=== PATIENT | female | born 1975 | race Caucasian/White ===

== ENCOUNTER 2019-04-24 19:28 | Inpatient (IN) | payer OTHER ==
[~2019-04-24] VITALS: Ht 154.9 cm; Wt 95.5 kg
[~2019-04-24 19:28] MED LIST: DEXA1TAB PO; IRBE1TAB33 PO; LEVE-5 PO; OMEP20CA16 PO; TOPI50TA13 PO
[2019-04-24] MEDS ORDERED: LORAZEPAM 2 MG INJ IV ONE (20:00)
[2019-04-24] MEDS ORDERED: ONDANSETRON 4 MG INJ IV STA ×2 (20:51→22:57)
[2019-04-24] MEDS ORDERED: ACETAMINOPHEN 325 MG TAB PO ONE (21:00)
[2019-04-24] MEDS ORDERED: POTASSIUM CHLORIDE (SR) 20 MEQ TAB PO STA (21:10)
[2019-04-24] MEDS ORDERED: ONDANSETRON 4 MG INJ IV PRN ×2 (21:30)
[2019-04-24] MEDS ORDERED: ACETAMINOPHEN 325 MG TAB PO PRN (21:30)
[2019-04-24] MEDS ORDERED: BISACODYL (EC) 5 MG TAB PO PRN (21:30)
[2019-04-24] MEDS ORDERED: NACL 0.9% 3 ML SYG IV SCH (21:30)
[2019-04-24] MEDS ORDERED: LORAZEPAM 2 MG INJ IV PRN (21:30)
--- NOTE | 2019-04-24 21:33 | ERD ---
ER Documentation Chief Complaint Chief Complaint ALTERED MENTAL STATUS; PRESENTS CONFUSED BUT RESPONDING TO QUESTIONS HPI Patient is a 43-year-old female with a history of hypertension who presents with altered mental status. Please note the history and physical exam is limited secondary to the patient's altered mental status upon arrival. The patient was brought in by ambulance. 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 She was brought in from her home. Family reports seeing her become altered and then starts shaking all over and was confused afterwards. Upon review of old medical records this the patient's first visit to the emergency department. She has never had something like this happen her before. ROS All systems reviewed and are negative except as per history of present illness. Medications Home Meds Reported Medications Irbesartan-Hydrochlorothiazide (Irbesartan-Hydrochlorothiazide) 150-12.5 Mg Tab, TAB PO DAILY, TAB TAKE 1 OR 2 TAB DAILY 04/24/19 Allergies Allergies: Coded Allergies: No Known Allergy (Unverified , 04/24/19) PMhx/Soc Medical and Surgical Hx: pt denies Surgical Hx Hx Cardiac Disorders: Yes (Hypertension) Hx Alcohol Use: No Hx Substance Use: No Hx Tobacco Use: No Smoking Status: Unknown if ever smoked FmHx Family History: No diabetes Physical Exam Vitals Vital Signs Date Temp Pulse Resp B/P (MAP) Pulse Ox O2 O2 Flow FiO2 Time Delivery Rate 04/24/19 98.0 82 19 182/90 97 Room Air 20:46 (120) 04/24/19 98.3 100 20 188/105 100 19:35 (132) Physical Exam Const: No acute distress Head: Atraumatic Eyes: Normal Conjunctiva ENT: Normal External Ears, Nose and Mouth. Neck: Full range of motion. No meningismus. Resp: Clear to auscultation bilaterally Cardio: Regular rate and rhythm, no murmurs Abd: Soft, non tender, non distended. Normal bowel sounds Skin: Diaphoresis Back: No midline or flank tenderness Ext: No cyanosis, or edema Neur: Awake and alert, cranial nerves II through XII intact, moving all 4 extremities Result Diagram: 04/24/19193104/24/191931 Results 24 hrs Laboratory Tests Test 04/24/19 19:32 04/24/19 20:30 04/24/19 21:01 White Blood Count 14.0 10^3/ul Red Blood Count 5.32 10^6/ul Hemoglobin 14.9 g/dl Hematocrit 45.7 % Mean Corpuscular Volume 85.9 fl Mean Corpuscular Hemoglobin 28.0 pg Mean Corpuscular Hemoglobin Concent 32.6 g/dl Red Cell Distribution Width 14.3 % Platelet Count 402 10^3/UL Mean Platelet Volume 9.8 fl Immature Granulocytes % 0.400 % Neutrophils % 46.9 % Lymphocytes % 42.7 % Monocytes % 7.6 % Eosinophils % 1.6 % Basophils % 0.8 % Nucleated Red Blood Cells % 0.0 /100WBC Immature Granulocytes # 0.050 10^3/ul Neutrophils # 6.6 10^3/ul Lymphocytes # 6.0 10^3/ul Monocytes # 1.1 10^3/ul Eosinophils # 0.2 10^3/ul Basophils # 0.1 10^3/ul Nucleated Red Blood Cells # 0.0 10^3/ul Sodium Level 140 mmol/L Potassium Level 3.0 mmol/L Chloride Level 104 mmol/L Carbon Dioxide Level 17 mmol/L Anion Gap 19 Blood Urea Nitrogen 11 mg/dl Creatinine 0.85 mg/dl Est Glomerular Filtrat Rate mL/min > 60 mL/min Glucose Level 169 mg/dl Bedside Glucose 164 mg/dL Calcium Level 9.4 mg/dl Urine Opiates Screen Negative Urine Barbiturates Negative Urine Amphetamines Screen Negative Urine Benzodiazepines Screen Negative Urine Cocaine Screen Negative Urine Cannabinoids Negative POC Beta HCG, Qualitative NEGATIVE Current Medications Medications Dose Sig/Anna Start Time Status Last (Trade) Ordered Route PRN Stop Time Admin Dose Reason Admin Lorazepam 0.5 mg ONCE ONCE 04/24/19 DC 04/24/19 (Ativan) IV 20:00 04/24/19 19:48 20:01 650 mg ONCE ONCE 04/24/19 DC 04/24/19 Acetaminophen PO 21:00 04/24/19 20:56 (Tylenol 21:01 Tab) Ondansetron 4 mg ONCE STAT 04/24/19 DC 04/24/19 HCl (Zofran IV 20:51 04/24/19 20:56 Inj) 20:52 Potassium 40 meq ONCE STAT 04/24/19 DC Chloride PO 21:10 04/24/19 (Klor-Con 20) 21:11 Ondansetron 4 mg ER BRIDGE 04/24/19 HCl (Zofran PRN IV 21:30 04/25/19 Inj) NAUSEA/VOMITI 21:29 NG 650 mg ER BRIDGE 04/24/19 Acetaminophen PRN PO 21:30 04/25/19 (Tylenol .MILD PAIN 21:29 Tab) 1-3 OR TEMP Lorazepam 1 mg [id number] 04/24/19 UNV (Ativan) PRN IV 21:30 SEIZURES 100 ml @ ONCE ONCE 04/24/19 UNV Levetiracetam 400 mls/hr IVPB 21:30 04/24/19 21:44 IV Flush 3 ml PER 04/24/19 UNV (NS 3 ml) PROTOCOL IV 21:30 Ondansetron 4 mg Q6H PRN 04/24/19 UNV HCl (Zofran IV 21:30 Inj) NAUSEA/VOMITI NG 650 mg Q6H PRN 04/24/19 UNV Acetaminophen PO .PAIN 1-3 21:30 (Tylenol OR TEMP Tab) Docusate 100 mg Q12H PRN 04/24/19 UNV Sodium PO 21:30 (Colace) .CONSTIPATION Bisacodyl 5 mg DAILY PRN 04/24/19 UNV (Dulcolax) PO 21:30 .CONSTIPATION Procedures/MDM CT brain read by radiology. Patient is a 43-year-old female presents with acute new onset seizure. Patient is now back to baseline. CT brain was abnormal and showed an area of vasogenic edema. The patient will need admission for MRI and further seizure work-up possibly with EEG. The patient will be admitted to the care of Dr. Estevez to a telemetry inpatient bed. The patient was given Ativan to prevent further seizure. DMV form was filled out and sent to the DMV. Critical Care: Time: 35 minutes excluding all billable procedures. Treatments/Evaluations: Close monitoring and treatment of unstable vital signs, cardiorespiratory, and neurologic status, while maintaining tight balance of fluid, respiratory, and cardiac interventions. Departure Diagnosis: Primary Impression: New onset seizure Additional Impression: Altered level of consciousness Condition: Serious HELENA MARQUES MD Apr 24, 2019 21:33
[2019-04-24] MEDS ORDERED: LEVETIRACETAM 1000 MG (PMX) 100 ML IVPB ONE (21:45)
[2019-04-24] MEDS ORDERED: SOD CHLORIDE 0.9% 1,000 ML IV STA (22:57)
[2019-04-24] MEDS ORDERED: morphine 4 MG/ML VIAL IV STA (22:57)
[2019-04-25] MEDS ORDERED: NS + KCL 20 MEQ 1,000 ML IV SCH
--- NOTE | 2019-04-25 02:08 | HP ---
Date/Time of Note Date/Time of Note DATE: 04/25/19 TIME: 02:08 Assessment/Plan VTE Prophylaxis SCD applied (from Nsg): Yes Pharmacological prophylaxis: NA/contraindicated Pharm contraindication: low risk/ambulating Lines/Catheters IV Catheter Type (from Nrsg): Saline Lock Assessment/Plan Hospital Course This is a 43-year-old female being admitted to the telemetry floor for : #1 new onset seizure: Suspect secondary to underlying parenchymal lesion. Will give a loading dose of Keppra 1000 mg IV x1. PRN Ativan. Seizure precautions. MRI of the brain with contrast is pending. Will order EEG. Will consult neurology, and depending on MRI findings will consider neurosurgery consultation . PT eval. DMV has been notified by the emergency department. Will order a chest x-ray for preop purposes in the setting of possible neurosurgical intervention. #[address]: Asymmetric low attenuation in the right parietal lobe subcortical white matter. Mild asymmetric prominence of the overlying gyri. The finding may represent parenchymal lesion with underlying vasogenic edema or malformation of cortical development, and can represent seizure focus. Asymmetric cleft with CSF attenuation in the right temporal lobe, potentially representing close lip schizencephaly. - MRI brain with contrast has been ordered #3 Leukocytosis: likely reactive. No signs of infection, afebrile. Will monitor #4 hypertension: We will resume patient's home blood pressure medication. Low- salt diet #5 morbidly obese: We will check hemoglobin A1c, lipid panel, TSH #6 DVT GI prophylaxis: SCDs, no GI prophylaxis indicated Further treatment strategy will be implemented as per the clinical course Result Diagram: 04/24/19193104/24/191931 Results 24hrs Laboratory Tests Test 04/24/19 19:32 04/24/19 20:30 04/24/19 21:01 White Blood Count 14.0 H Red Blood Count 5.32 Hemoglobin 14.9 Hematocrit 45.7 Mean Corpuscular Volume 85.9 Mean Corpuscular Hemoglobin 28.0 L Mean Corpuscular 32.6 Hemoglobin Concent Red Cell Distribution Width 14.3 Platelet Count 402 Mean Platelet Volume 9.8 Immature Granulocytes % 0.400 Neutrophils % 46.9 Lymphocytes % 42.7 Monocytes % 7.6 Eosinophils % 1.6 Basophils % 0.8 Nucleated Red Blood Cells % 0.0 Immature Granulocytes # 0.050 H Neutrophils # 6.6 Lymphocytes # 6.0 H Monocytes # 1.1 H Eosinophils # 0.2 Basophils # 0.1 Nucleated Red Blood Cells # 0.0 Sodium Level 140 Potassium Level 3.0 L Chloride Level 104 Carbon Dioxide Level 17 L Anion Gap 19 H Blood Urea Nitrogen 11 Creatinine 0.85 Est Glomerular Filtrat > 60 Rate mL/min Glucose Level 169 Bedside Glucose 164 Calcium Level 9.4 Urine Color YELLOW Urine Clarity SLIGHTLY CLOUDY A Urine pH 5.0 Urine Specific Powers 1.020 Urine Ketones 1+ H Urine Nitrite NEGATIVE Urine Bilirubin NEGATIVE Urine Urobilinogen NEGATIVE Urine Leukocyte Esterase 1+ H Urine Microscopic RBC 11 H Urine Microscopic WBC 6 H Urine Squamous Epithelial Cells FEW Urine Hemoglobin NEGATIVE Urine Glucose NEGATIVE Urine Total Protein 1+ H Urine Opiates Screen Negative Urine Barbiturates Negative Urine Amphetamines Screen Negative Urine Benzodiazepines Screen Negative Urine Cocaine Screen Negative Urine Cannabinoids Negative POC Beta HCG, Qualitative NEGATIVE HPI/ROS Admit Date/Time Admit Date/Time Hx of Present Illness Chief complaint: Witnessed seizure, altered mental status Patient is a 43-year-old female with a history of hypertension who presents with altered mental status status post new onset witnessed seizure. As per the family at the bedside the patient was sitting and having dinner with the family when all of a sudden she appeared to be in a stare and then started having shaking activity and foaming at the mouth. Family members grabbed the patient and gently put her to the ground and on her side. The seizure did continue for a few minutes and then it stopped on its own without any intervention. The patient did appear confused after the seizure stopped. When she arrived in the emergency department she still was somewhat confused. Her blood sugar was checked in the emergency department and it was 115. Please note the history and physical exam is limited secondary to the patient's altered mental status upon arrival. The patient was brought in by ambulance. The patient's sugar was 115 but she was not cooperative with paramedics. She was brought in from her home. She does have a family history of seizures in her sister. Allergies: NKDA medications: See CASTILLO PAUL Const: As per HPI Eyes : No pain discharge or redness or change in visual acuity ENT: No pain, sore throat, congestion, congestion, dysphagia or discharge Respiratory: No shortness of breath, cough, sputum, wheezing, or pleuritic pain Cardiovascular: No chest pain, palpitation, PND, or edema GI : no change in appetite, abdominal pain, nausea, vomiting, diarrhea, constipation, or change in the color his stool Genitourinary: No dysuria, hematuria, flank pain , discharge or CVA tenderness Musculoskeletal: No joint pain, back pain, neck pain, restricted range of motion in neck or joints Skin: No rash, bruising or hives Neuro: As per HPI Endocrine: No polyuria, polydipsia, temperature intolerance Psych: No hallucination, depression, anxiety or suicidal ideation PMH/Family/Social Past Medical History Hypertension, migraines Medications Current Medications Ondansetron HCl (Zofran Inj) 4 mg ER BRIDGE PRN IV NAUSEA/VOMITING; Start 04/24/19 at 21:30; Stop 04/25/19 at 21:29 Acetaminophen (Tylenol Tab) 650 mg ER BRIDGE PRN PO .MILD PAIN 1-3 OR TEMP; Start 04/24/19 at 21:30; Stop 04/25/19 at 21:29 Lorazepam (Ativan) 1 mg Q5M PRN IV SEIZURES; Start 04/24/19 at 21:30 IV Flush (NS 3 ml) 3 ml PER PROTOCOL IV ; Start 04/24/19 at 21:30 Ondansetron HCl (Zofran Inj) 4 mg Q6H PRN IV NAUSEA/VOMITING; Start 04/24/19 at 21:30 Acetaminophen (Tylenol Tab) 650 mg Q6H PRN PO .PAIN 1-3 OR TEMP; Start 04/24/19 at 21:30 Docusate Sodium (Colace) 100 mg Q12H PRN PO .CONSTIPATION; Start 04/24/19 at 21:30 Bisacodyl (Dulcolax) 5 mg DAILY PRN PO .CONSTIPATION; Start 04/24/19 at 21:30 Potassium Chloride/Sodium Chloride 1,000 ml @ 75 mls/hr [id number] IV Last administered on 04/25/19at 00:45; Admin Dose 75 MLS/HR; Start 04/25/19 at 00:00; Stop 04/25/19 at 11:59 Coded Allergies: No Known Allergy (Unverified , 04/24/19) Past Surgical History x1, cholecystectomy Family History Significant Family History: no pertinent family hx Social History Alcohol Use: occasionally Smoking Status: Never smoker Drug Use: none Exam/Review of Systems Vital Signs Vitals Vital Signs Date Temp Pulse Resp B/P (MAP) Pulse Ox O2 O2 Flow FiO2 Time Delivery Rate 04/25/19 75 20 144/101 94 Room Air 01:42 (115) 04/24/19 98.0 22:53 Intake and Output 04/24/19 04/24/19 04/25/19 1515:00 23:00 07:00 IntakeIntake Total 100 ml 1000 ml BalanceBalance 100 ml 1000 ml Exam Exam General: patient is a pleasant female currently lying in bed in no acute distress HEENT: Atraumatic, normocephalic. The pupils are equal, round and reactive. Extraocular motor are intact Neck: Supple with full range of motion. No rigidity or meningismus Chest: Nontender Lungs: Clear to auscultation bilaterally no crackles rales or wheezing Heart: Normal S1-S2, Regular rhythm and rate. No murmur, S3, or S4 Abdomen: Morbidly obese, soft , nontender, nondistended , bowel sounds are present. No guarding no rebound tenderness , No masses or organomegaly. No costovertebral temporal angle mass Extremities: Normal to inspection, no edema no cyanosis Neurologic: Alert and oriented x4, normal mental status, speech normal, cranial nerves II through XII are intact, motor and sensory are intact, no focal neurological deficits noted on exam. Gait not assessed Additional Comments PROCEDURE: CT Brain without contrast CLINICAL INDICATION: Patient experiencing Seizure (Perform CT without Contrast) TECHNIQUE: A CT of the brain was performed on multidetector high-resolution CT scanner utilizing axial sections from the skull base through the vertex without contrast. The scan was reviewed in soft tissue brain and high frequency resolution bone algorithm windows. Images were reviewed on a high-resolution PACS workstation. DICOM images are available. CTDI (mGy): 37.48 mGy and DLP(mGy-cm): 634.23 mGy.cm One or more of the following dose reduction techniques were used: - Automated exposure control. - Adjustment of the mA and/or kV according to patient size. Use of iterative reconstruction technique. COMPARISON: None available FINDINGS: The ventricles and sulci are symmetric and normal in size and morphology. There is no evidence of intracranial hemorrhage, mass effect, or midline shift. No abnormal intra-axial or extra-axial fluid collections are seen. There is asymmetric low attenuation in the subcortical white matter of the right parietal lobe. The overlying cortical gyri appear slightly more prominent compared to the contralateral side. 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 The osseous structures and visualized paranasal sinuses are unremarkable. The surrounding soft tissue scalp and bony calvarium are intact and normal. IMPRESSION: 1. Asymmetric low attenuation in the right parietal lobe subcortical white matter. Mild asymmetric prominence of the overlying gyri. The finding may represent parenchymal lesion with underlying vasogenic edema or malformation of cortical development, and can represent seizure focus. Dedicated brain MR with contrast is recommended for further evaluation. 2. Asymmetric cleft with CSF attenuation in the right temporal lobe, potentially representing close lip schizencephaly. 3. No CT evidence of acute findings such as hemorrhage, herniation or midline s hift. These findings were discussed with Helena Ledezma at 04/24/2019 8:59:15 PM. RPTAT: EE Physician Barrett Date Time Electronically viewed and signed by Physician Barrett on 04/24/2019 20:59 BP/ CC: HELENA MARQUES MD [id number] PROCEDURE: Chest. GLORIA BLAND Apr 25, 2019 02:08
[2019-04-25 02:55] VITALS: BP 126/81; PULSE 61; RESP 18
[2019-04-25 03:11] VITALS: Ht 154.9 cm; Wt 95.5 kg
[2019-04-25 04:00] VITALS: BP 121/78; PULSE 60; RESP 19
[2019-04-25 07:37] VITALS: BP 123/67; PULSE 68; RESP 18
[2019-04-25] MEDS: ACETAMINOPHEN 325 MG TAB PO PRN (08:53)
[2019-04-25] MEDS: LEVETIRACETAM 500 MG TAB PO SCH ×2 (08:53→22:13)
[2019-04-25 12:31] VITALS: BP 155/75; PULSE 69; RESP 18
--- NOTE | 2019-04-25 14:37 | PN ---
Date/Time of Note Date/Time of Note DATE: 04/25/19 TIME: 14:30 Assessment/Plan VTE Prophylaxis Risk score (from Nsg)>0 risk: 3 SCD applied (from Nsg): Yes Pharmacological prophylaxis: NA/contraindicated Pharm contraindication: low risk/ambulating Lines/Catheters IV Catheter Type (from Nrsg): Peripheral IV Urinary Cath still in place: No Assessment/Plan Assessment/Plan 43 yo woman with new onset seizure found to have #1 new onset seizure: - Likely due to 2.5 cm R temporal mass (likely meningioma) seen on CT and MRI - Continue daily Keppra for now. - Seizure precautions - Neurology consulted - DMV was notified by the ED. 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 #3 hypertension: We will resume patient's home blood pressure medication. Low- salt diet #4 morbidly obese: We will check hemoglobin A1c, lipid panel, TSH #5 DVT GI prophylaxis: SCDs, no GI prophylaxis indicated Result Diagram: 04/25/1946 04/25/19 0548 Subjective 24 Hr Interval Summary Free Text/Dictation No acute overnight events. Patient is doing well. She has mild left hip and shoulder soreness, otherwise no complaints. Exam/Review of Systems Exam Vitals Vital Signs Date Temp Pulse Resp B/P (MAP) Pulse Ox O2 O2 Flow FiO2 Time Delivery Rate 04/25/19 97.8 69 18 155/75 95 Room Air 12:31 (101) 04/25/19 2.0 08:00 Intake and Output 04/24/19 04/24/19 04/25/19 1515:00 23:00 07:00 IntakeIntake Total 100 ml 1620 ml BalanceBalance 100 ml 1620 ml Exam General: Patient is a pleasant woman sitting up in chair. HEENT: Atraumatic, normocephalic. The pupils are equal, round and reactive. Extraocular motor are intact Neck: Supple with full range of motion. No rigidity or meningismus Chest: Nontender Lungs: Clear to auscultation bilaterally no crackles rales or wheezing Heart: Normal S1-S2, Regular rhythm and rate. No murmur, S3, or S4 Abdomen: Morbidly obese, soft , nontender, nondistended , bowel sounds are present. Extremities: Normal to inspection, no edema no cyanosis Results Results 24hrs Laboratory Tests Test 04/24/19 19:32 04/24/19 20:30 04/24/19 21:01 04/25/19 05:48 White Blood Count 14.0 H 11.7 H Red Blood Count 5.32 4.82 Hemoglobin 14.9 13.4 Hematocrit 45.7 41.4 Mean Corpuscular 85.9 85.9 Volume Mean Corpuscular 28.0 L 27.8 L Hemoglobin Mean Corpuscular 32.6 32.4 Hemoglobin Concent Red Cell 14.3 14.4 Distribution Width Platelet Count 402 350 Mean Platelet 9.8 9.8 Volume Immature 0.400 0.300 Granulocytes % Neutrophils % 46.9 68.7 Lymphocytes % 42.7 21.8 Monocytes % 7.6 8.0 Eosinophils % 1.6 0.7 Basophils % 0.8 0.5 Nucleated Red 0.0 0.0 Blood Cells % Immature 0.050 H 0.040 H Granulocytes # Neutrophils # 6.6 8.1 H Lymphocytes # 6.0 H 2.6 Monocytes # 1.1 H 0.9 Eosinophils # 0.2 0.1 Basophils # 0.1 0.1 Nucleated Red 0.0 0.0 Blood Cells # Sodium Level 140 143 Potassium Level 3.0 L 3.6 Chloride Level 104 112 H Carbon Dioxide 17 L 23 Level Anion Gap 19 H 8 # Blood Urea 11 9 Nitrogen Creatinine 0.85 0.63 Est Glomerular > 60 > 60 Filtrat Rate mL/min Glucose Level 169 101 # Bedside Glucose 164 Calcium Level 9.4 8.3 L Urine Color YELLOW Urine Clarity SLIGHTLY CLOUDY A Urine pH 5.0 Urine Specific 1.020 [place] Urine Ketones 1+ H Urine Nitrite NEGATIVE Urine Bilirubin NEGATIVE Urine Urobilinogen NEGATIVE Urine Leukocyte 1+ H Esterase Urine Microscopic 11 H RBC Urine Microscopic 6 H WBC Urine Squamous FEW Epithelial Cells Urine Hemoglobin NEGATIVE Urine Glucose NEGATIVE Urine Total 1+ H Protein Urine Opiates Negative Screen Urine Barbiturates Negative Urine Amphetamines Negative Screen Urine Negative Benzodiazepines Screen Urine Cocaine Negative Screen Urine Cannabinoids Negative POC Beta HCG, NEGATIVE Qualitative Hemoglobin A1c 5.7 Magnesium Level 2.0 Total Bilirubin 0.6 Direct Bilirubin 0.00 Indirect Bilirubin 0.6 Aspartate Amino 31 Transf (AST/SGOT) Alanine 41 Aminotransferase ( ALT/SGPT) Alkaline 65 Phosphatase Total Protein 7.4 Albumin 3.7 Globulin 3.70 H Albumin/Globulin 1.00 Ratio Thyroid 1.170 Stimulating Hormone (TSH) Medications Medication Current Medications Lorazepam (Ativan) 1 mg Q5M PRN IV SEIZURES; Start 04/24/19 at 21:30 IV Flush (NS 3 ml) 3 ml PER PROTOCOL IV ; Start 04/24/19 at 21:30 Ondansetron HCl (Zofran Inj) 4 mg Q6H PRN IV NAUSEA/VOMITING; Start 04/24/19 at 21:30 Acetaminophen (Tylenol Tab) 650 mg Q6H PRN PO .PAIN 1-3 OR TEMP Last administered on 04/25/19at 08:53; Admin Dose 650 MG; Start 04/24/19 at 21:30 Docusate Sodium (Colace) 100 mg Q12H PRN PO .CONSTIPATION; Start 04/24/19 at 21:30 Bisacodyl (Dulcolax) 5 mg DAILY PRN PO .CONSTIPATION; Start 04/24/19 at 21:30 Levetiracetam (Keppra) 500 mg BID PO Last administered on 04/25/19at 08:53; Admin Dose 500 MG; Start 04/25/19 at 09:00 MARGARET HAM MD Apr 25, 2019 14:37
--- NOTE | 2019-04-25 14:40 | CONSI ---
Assessment/Plan Assessment/Plan Assessment/Plan (Recall) 43 F c/ migraines and other comorbidities, who presents following a witnessed generalized convulsion. She was found on brain imaging to have an extraaxial lesion w/ adjacent parenchymal edema..which is certainly the underlying cause.. P: Keppra for now; Transition to Topamax monotherapy for seizure ppx Ativan iv prn prolonged seizure or cluster Await neurosurgery evaluation Other management and supportive care per primary She can not drive in the short-term Will follow clinically Consultation Date/Type/Reason Admit Date/Time Type of Consult Neurology Reason for Consultation seizure Requesting Provider: GLORIA BLAND Date/Time of Note DATE: 04/25/19 TIME: 14:34 Hx of Present Illness Patient is a 43-year-old female with a history of, migraine and hypertension who presents with altered mental status status post new onset witnessed seizure. As per the family at the bedside the patient was sitting and having dinner with the family when all of a sudden she appeared to be in a stare and then started having shaking activity and foaming at the mouth. Family members grabbed the patient and gently put her to the ground and on her side. The seizure did continue for a few minutes and then it stopped on its own without any intervention. The patient did appear confused after the seizure stopped. When she arrived in the emergency department she still was somewhat confused. Her blood sugar was checked in the emergency department and it was 115. Please note the history and physical exam is limited secondary to the patient's altered ment al status upon arrival. The patient was brought in by ambulance. The patient's sugar was 115 but she was not cooperative with paramedics. She was brought in from her home. She does have a family history of seizures in her sister. She notes several episodes of outer body experience w/ hearing difficulties, etc. in recent weeks. per HPI Objective Exam Vitals Vital Signs Date Temp Pulse Resp B/P (MAP) Pulse Ox O2 O2 Flow FiO2 Time Delivery Rate 04/25/19 97.8 69 18 155/75 95 Room Air 12:31 (101) 04/25/19 2.0 08:00 Intake and Output 04/24/19 04/24/19 04/25/19 1515:00 23:00 07:00 IntakeIntake Total 100 ml 1620 ml BalanceBalance 100 ml 1620 ml Exam PE: Gen Appearance: No Apparent Distress HEENT: Normocephalic Cardiovascular: Regular rate Lungs: Clear bilaterally Abdomen: Soft Extremities: Dry NE: The patient was alert and oriented. Language was normal. Fund of knowledge was normal. Pupils were equal and reactive to light. There was no afferent pupillary defect. Visual salazar were normal. Funduscopic examination was limited. Extra-ocular movements were full. Ptosis was absent. There was no nystagmus. Facial sensation was normal. Face was symmetric with normal strength. Hearing was intact. Palate movements were normal. Neck strength was normal. There was normal tongue bulk and speed of movement. Tone was normal. Muscle bulk was normal. I did not see fasciculations. Arms and legs were strong. Vibration sensation was normal. Temperature and pinprick sensation was normal. Rapid alternating movements were normal. There was no dysmetria. There was no intention tremor. Gait was deferred due to bedrest. Arm and leg reflexes were symmetric. Seo's sign was absent. Plantar responses were flexor. Results Result Diagram: 04/25/19 0548 04/25/19 0548 Results 24hrs Laboratory Tests Test 04/24/19 19:32 04/24/19 20:30 04/24/19 21:01 04/25/19 05:48 White Blood Count 14.0 H 11.7 H Red Blood Count 5.32 4.82 Hemoglobin 14.9 13.4 Hematocrit 45.7 41.4 Mean Corpuscular 85.9 85.9 Volume Mean Corpuscular 28.0 L 27.8 L Hemoglobin Mean Corpuscular 32.6 32.4 Hemoglobin Concent Red Cell 14.3 14.4 Distribution Width Platelet Count 402 350 Mean Platelet 9.8 9.8 Volume Immature 0.400 0.300 Granulocytes % Neutrophils % 46.9 68.7 Lymphocytes % 42.7 21.8 Monocytes % 7.6 8.0 Eosinophils % 1.6 0.7 Basophils % 0.8 0.5 Nucleated Red 0.0 0.0 Blood Cells % Immature 0.050 H 0.040 H Granulocytes # Neutrophils # 6.6 8.1 H Lymphocytes # 6.0 H 2.6 Monocytes # 1.1 H 0.9 Eosinophils # 0.2 0.1 Basophils # 0.1 0.1 Nucleated Red 0.0 0.0 Blood Cells # Sodium Level 140 143 Potassium Level 3.0 L 3.6 Chloride Level 104 112 H Carbon Dioxide 17 L 23 Level Anion Gap 19 H 8 # Blood Urea 11 9 Nitrogen Creatinine 0.85 0.63 Est Glomerular > 60 > 60 Filtrat Rate mL/min Glucose Level 169 101 # Bedside Glucose 164 Calcium Level 9.4 8.3 L Urine Color YELLOW Urine Clarity SLIGHTLY CLOUDY A Urine pH 5.0 Urine Specific 1.020 [place] Urine Ketones 1+ H Urine Nitrite NEGATIVE Urine Bilirubin NEGATIVE Urine Urobilinogen NEGATIVE Urine Leukocyte 1+ H Esterase Urine Microscopic 11 H RBC Urine Microscopic 6 H WBC Urine Squamous FEW Epithelial Cells Urine Hemoglobin NEGATIVE Urine Glucose NEGATIVE Urine Total 1+ H Protein Urine Opiates Negative Screen Urine Barbiturates Negative Urine Amphetamines Negative Screen Urine Negative Benzodiazepines Screen Urine Cocaine Negative Screen Urine Cannabinoids Negative POC Beta HCG, NEGATIVE Qualitative Hemoglobin A1c 5.7 Magnesium Level 2.0 Total Bilirubin 0.6 Direct Bilirubin 0.00 Indirect Bilirubin 0.6 Aspartate Amino 31 Transf (AST/SGOT) Alanine 41 Aminotransferase ( ALT/SGPT) Alkaline 65 Phosphatase Total Protein 7.4 Albumin 3.7 Globulin 3.70 H Albumin/Globulin 1.00 Ratio Thyroid 1.170 Stimulating Hormone (TSH) Past Medical History reviewed Home Meds Reported Medications Irbesartan-Hydrochlorothiazide (Irbesartan-Hydrochlorothiazide) 150-12.5 Mg Tab, TAB PO DAILY, TAB TAKE 1 OR 2 TAB DAILY 04/24/19 Medications Current Medications Lorazepam (Ativan) 1 mg Q5M PRN IV SEIZURES; Start 04/24/19 at 21:30 IV Flush (NS 3 ml) 3 ml PER PROTOCOL IV ; Start 04/24/19 at 21:30 Ondansetron HCl (Zofran Inj) 4 mg Q6H PRN IV NAUSEA/VOMITING; Start 04/24/19 at 21:30 Acetaminophen (Tylenol Tab) 650 mg Q6H PRN PO .PAIN 1-3 OR TEMP Last administered on 04/25/19at 08:53; Admin Dose 650 MG; Start 04/24/19 at 21:30 Docusate Sodium (Colace) 100 mg Q12H PRN PO .CONSTIPATION; Start 04/24/19 at 21:30 Bisacodyl (Dulcolax) 5 mg DAILY PRN PO .CONSTIPATION; Start 04/24/19 at 21:30 Levetiracetam (Keppra) 500 mg BID PO Last administered on 04/25/19at 08:53; Admin Dose 500 MG; Start 04/25/19 at 09:00 Allergies: Coded Allergies: No Known Allergy (Unverified , 04/24/19) Social History Alcohol Use: occasionally Smoking Status: Never smoker Drug Use: none CURLY LEDESMA Apr 25, 2019 14:40
--- NOTE | 2019-04-25 15:04 | CONS ---
Assessment/Plan Assessment/Plan Assessment/Plan (Daily) Diagnoses: 1) Right temporal convexity meningioma 2) Cerebral edema 3) Seizure disorder Ms. Duenas is a 43 year old woman with a seizure that is very likely attributable to a right temporal convexity meningioma and paul-tumoral edema. She is currently on Keppra. I reviewed the options of observation, radiation, and surgical resection with her. Given her age, the tumor size, the peritumoral edema, and the seizure, I recommended surgery amongst those options. She understands the risks and benefits and is eager to proceed. We are planning for surgery morning at 730AM Consultation Date/Type/Reason Admit Date/Time Date of Consultation: Apr 25, 2019 Type of Consult Neurosurgery Date/Time of Note DATE: 04/25/19 TIME: 14:57 Hx of Present Illness Ms. Duenas is a 43 year old LEFT-handed female who had a generalized tonic- clonic yesterday that was reported to start with the left side of the body. She only remembers waking up in the hospital and has never had a seizure before. She has some history of headaches that are generally once a month (not with menstrual periods) and are migrainous in nature. She has no weakness or word- finding difficulties. Past Medical History Home Meds Reported Medications Irbesartan-Hydrochlorothiazide (Irbesartan-Hydrochlorothiazide) 150-12.5 Mg Tab, TAB PO DAILY, TAB TAKE 1 OR 2 TAB DAILY 04/24/19 Medications Current Medications Lorazepam (Ativan) 1 mg Q5M PRN IV SEIZURES; Start 04/24/19 at 21:30 IV Flush (NS 3 ml) 3 ml PER PROTOCOL IV ; Start 04/24/19 at 21:30 Ondansetron HCl (Zofran Inj) 4 mg Q6H PRN IV NAUSEA/VOMITING; Start 04/24/19 at 21:30 Acetaminophen (Tylenol Tab) 650 mg Q6H PRN PO .PAIN 1-3 OR TEMP Last administered on 04/25/19at 08:53; Admin Dose 650 MG; Start 04/24/19 at 21:30 Docusate Sodium (Colace) 100 mg Q12H PRN PO .CONSTIPATION; Start 04/24/19 at 21:30 Bisacodyl (Dulcolax) 5 mg DAILY PRN PO .CONSTIPATION; Start 04/24/19 at 21:30 Levetiracetam (Keppra) 500 mg BID PO Last administered on 04/25/19at 08:53; Admin Dose 500 MG; Start 04/25/19 at 09:00 Topiramate (Topamax) 25 mg BID PO ; Start 04/25/19 at 15:00 Allergies: Coded Allergies: No Known Allergy (Unverified , 04/24/19) Social History Alcohol Use: occasionally Smoking Status: Never smoker Drug Use: none Exam/Review of Systems Exam Vitals Vital Signs Date Temp Pulse Resp B/P (MAP) Pulse Ox O2 O2 Flow FiO2 Time Delivery Rate 04/25/19 97.8 69 18 155/75 95 Room Air 12:31 (101) 04/25/19 2.0 08:00 Intake and Output 04/24/19 04/24/19 04/25/19 1515:00 23:00 07:00 IntakeIntake Total 100 ml 1620 ml BalanceBalance 100 ml 1620 ml Exam Ox3 fluent 5/5 strength Results Result Diagram: 04/25/19 0548 04/25/19 0548 Results 24hrs Laboratory Tests Test 04/24/19 19:32 04/24/19 20:30 04/24/19 21:01 04/25/19 05:48 White Blood Count 14.0 H 11.7 H Red Blood Count 5.32 4.82 Hemoglobin 14.9 13.4 Hematocrit 45.7 41.4 Mean Corpuscular 85.9 85.9 Volume Mean Corpuscular 28.0 L 27.8 L Hemoglobin Mean Corpuscular 32.6 32.4 Hemoglobin Concent Red Cell 14.3 14.4 Distribution Width Platelet Count 402 350 Mean Platelet 9.8 9.8 Volume Immature 0.400 0.300 Granulocytes % Neutrophils % 46.9 68.7 Lymphocytes % 42.7 21.8 Monocytes % 7.6 8.0 Eosinophils % 1.6 0.7 Basophils % 0.8 0.5 Nucleated Red 0.0 0.0 Blood Cells % Immature 0.050 H 0.040 H Granulocytes # Neutrophils # 6.6 8.1 H Lymphocytes # 6.0 H 2.6 Monocytes # 1.1 H 0.9 Eosinophils # 0.2 0.1 Basophils # 0.1 0.1 Nucleated Red 0.0 0.0 Blood Cells # Sodium Level 140 143 Potassium Level 3.0 L 3.6 Chloride Level 104 112 H Carbon Dioxide 17 L 23 Level Anion Gap 19 H 8 # Blood Urea 11 9 Nitrogen Creatinine 0.85 0.63 Est Glomerular > 60 > 60 Filtrat Rate mL/min Glucose Level 169 101 # Bedside Glucose 164 Calcium Level 9.4 8.3 L Urine Color YELLOW Urine Clarity SLIGHTLY CLOUDY A Urine pH 5.0 Urine Specific 1.020 [place] Urine Ketones 1+ H Urine Nitrite NEGATIVE Urine Bilirubin NEGATIVE Urine Urobilinogen NEGATIVE Urine Leukocyte 1+ H Esterase Urine Microscopic 11 H RBC Urine Microscopic 6 H WBC Urine Squamous FEW Epithelial Cells Urine Hemoglobin NEGATIVE Urine Glucose NEGATIVE Urine Total 1+ H Protein Urine Opiates Negative Screen Urine Barbiturates Negative Urine Amphetamines Negative Screen Urine Negative Benzodiazepines Screen Urine Cocaine Negative Screen Urine Cannabinoids Negative POC Beta HCG, NEGATIVE Qualitative Hemoglobin A1c 5.7 Magnesium Level 2.0 Total Bilirubin 0.6 Direct Bilirubin 0.00 Indirect Bilirubin 0.6 Aspartate Amino 31 Transf (AST/SGOT) Alanine 41 Aminotransferase ( ALT/SGPT) Alkaline 65 Phosphatase Total Protein 7.4 Albumin 3.7 Globulin 3.70 H Albumin/Globulin 1.00 Ratio Thyroid 1.170 Stimulating Hormone (TSH) Imaging Imaging 2.5 cm right temporal meningioma with peritumoral edema Medications Medication Current Medications Lorazepam (Ativan) 1 mg Q5M PRN IV SEIZURES; Start 04/24/19 at 21:30 IV Flush (NS 3 ml) 3 ml PER PROTOCOL IV ; Start 04/24/19 at 21:30 Ondansetron HCl (Zofran Inj) 4 mg Q6H PRN IV NAUSEA/VOMITING; Start 04/24/19 at 21:30 Acetaminophen (Tylenol Tab) 650 mg Q6H PRN PO .PAIN 1-3 OR TEMP Last administered on 04/25/19at 08:53; Admin Dose 650 MG; Start 04/24/19 at 21:30 Docusate Sodium (Colace) 100 mg Q12H PRN PO .CONSTIPATION; Start 04/24/19 at 21:30 Bisacodyl (Dulcolax) 5 mg DAILY PRN PO .CONSTIPATION; Start 04/24/19 at 21:30 Levetiracetam (Keppra) 500 mg BID PO Last administered on 04/25/19at 08:53; Admin Dose 500 MG; Start 04/25/19 at 09:00 Topiramate (Topamax) 25 mg BID PO ; Start 04/25/19 at 15:00 KASIA BLAIR MD Apr 25, 2019 15:04
[2019-04-25] MEDS ORDERED: LIDOCAINE 2% VISC 15 ML CUP PO PRN (15:30)
[2019-04-25 16:25] VITALS: BP 119/56; PULSE 66; RESP 18
[2019-04-25] MEDS: TOPIRAMATE 25 MG TAB PO SCH ×2 (17:25→22:14)
[2019-04-25] MEDS: DEXAMETHASONE 2 MG TAB PO SCH ×2 (17:25→22:13)
[2019-04-25 19:42] VITALS: BP 113/59; PULSE 63; RESP 19
[2019-04-26] VITALS (7 sets, daily range): BP systolic 102–173; BP diastolic 58–103; PULSE 60–78; RESP 18–20
[2019-04-26] MEDS: DEXAMETHASONE 2 MG TAB PO SCH ×3 (06:30→20:48)
[2019-04-26] MEDS: TOPIRAMATE 25 MG TAB PO SCH ×2 (08:49→20:08)
[2019-04-26] MEDS: LEVETIRACETAM 500 MG TAB PO SCH ×2 (08:49→20:08)
--- NOTE | 2019-04-26 10:18 | CONS ---
Assessment/Plan Assessment/Plan Assessment/Plan (Recall) 43 F c/ migraines and other comorbidities, who presents following a witnessed generalized convulsion. She was found on brain imaging to have an extraaxial lesion w/ adjacent parenchymal edema..which is certainly the underlying cause.. Await surgical resection on 04/27 P: Continue Keppra for now; Transitioning to Topamax monotherapy for seizure ppx Ativan iv prn prolonged seizure or cluster Other management and supportive care per primary She can not drive in the short-term Will follow clinically Consultation Date/Type/Reason Admit Date/Time Apr 25, 2019 at 02:42 Type of Consult Neurology Reason for Consultation seizure Requesting Provider: GLORIA BLAND Date/Time of Note DATE: 04/26/19 TIME: 10:17 24 HR Interval Summary Free Text/Dictation Continues acute care No seizures noted Tolerated Topamax (and Keppra) Exam/Review of Systems Exam Vitals Vital Signs Date Temp Pulse Resp B/P (MAP) Pulse Ox O2 O2 Flow FiO2 Time Delivery Rate 04/26/19 97.1 67 18 119/79 98 Room Air 07:38 (92) 04/25/19 2.0 22:12 Intake and Output 04/25/19 04/25/19 04/26/19 1515:00 23:00 07:00 IntakeIntake Total 640 ml 895 ml 900 ml BalanceBalance 640 ml 895 ml 900 ml Results Result Diagram: 04/25/19 0548 04/25/19 0548 Medications Medication Current Medications Lorazepam (Ativan) 1 mg Q5M PRN IV SEIZURES; Start 04/24/19 at 21:30 IV Flush (NS 3 ml) 3 ml PER PROTOCOL IV ; Start 04/24/19 at 21:30 Ondansetron HCl (Zofran Inj) 4 mg Q6H PRN IV NAUSEA/VOMITING; Start 04/24/19 at 21:30 Acetaminophen (Tylenol Tab) 650 mg Q6H PRN PO .PAIN 1-3 OR TEMP Last administered on 04/25/19at 08:53; Admin Dose 650 MG; Start 04/24/19 at 21:30 Docusate Sodium (Colace) 100 mg Q12H PRN PO .CONSTIPATION; Start 04/24/19 at 21:30 Bisacodyl (Dulcolax) 5 mg DAILY PRN PO .CONSTIPATION; Start 04/24/19 at 21:30 Levetiracetam (Keppra) 500 mg BID PO Last administered on 04/26/19 08:49; Admin Dose 500 MG; Start 04/25/19 at 09:00 Topiramate (Topamax) 25 mg BID PO Last administered on 04/26/19 08:49; Admin Dose 25 MG; Start 04/25/19 at 15:00 Dexamethasone (Decadron) 2 mg Q8 PO Last administered on 04/26/19 06:30; Admin Dose 2 MG; Start 04/25/19 at 14:00 Lidocaine (Xylocaine (Viscous)) 15 ml QID PRN PO tongue pain Last administered on 04/25/19at 17:51; Admin Dose 15 ML; Start 04/25/19 at 15:30 CURLY LEDESMA Apr 26, 2019 10:18
--- NOTE | 2019-04-26 10:25 | PN ---
Date/Time of Note Date/Time of Note DATE: 04/26/19 TIME: 10:22 Assessment/Plan VTE Prophylaxis Risk score (from Nsg)>0 risk: 2 SCD applied (from Nsg): Yes Pharmacological prophylaxis: NA/contraindicated Pharm contraindication: low risk/ambulating Lines/Catheters IV Catheter Type (from Nrsg): Peripheral IV Urinary Cath still in place: No Assessment/Plan Assessment/Plan 43 yo woman with new onset seizure found to have #1 new onset seizure: - Likely due to 2.5 cm R temporal mass (likely meningioma) seen on CT and MRI - Transitioning from Keppra to topiramate. - Seizure precautions - Dr. Mackey following. - DMV was notified by the ED. #2 R temporal mass (likely meningioma) seen on CT and MRI - Dr. Zarate consulted. Plan for surgical resection tomorrow. #3 hypertension: We will resume patient's home blood pressure medication. Low- salt diet #4 morbidly obese: We will check hemoglobin A1c, lipid panel, TSH #5 DVT GI prophylaxis: SCDs, no GI prophylaxis indicated Result Diagram: 04/25/19 0548 04/25/19 0548 Subjective 24 Hr Interval Summary Free Text/Dictation No acute overnight events. Patient says she's ready for surgery tomorrow. Ambulating without assistance. Exam/Review of Systems Exam Vitals Vital Signs Date Temp Pulse Resp B/P (MAP) Pulse Ox O2 O2 Flow FiO2 Time Delivery Rate 04/26/19 97.1 67 18 119/79 98 Room Air 07:38 (92) 04/25/19 2.0 22:12 Intake and Output 04/25/19 04/25/19 04/26/19 1515:00 23:00 07:00 IntakeIntake Total 640 ml 895 ml 900 ml BalanceBalance 640 ml 895 ml 900 ml Exam General: Patient is a pleasant woman sitting up in chair. HEENT: Atraumatic, normocephalic. The pupils are equal, round and reactive. Extraocular motor are intact Neck: Supple with full range of motion. No rigidity or meningismus Chest: Nontender Lungs: Clear to auscultation bilaterally no crackles rales or wheezing Heart: Normal S1-S2, Regular rhythm and rate. No murmur, S3, or S4 Abdomen: Morbidly obese, soft , nontender, nondistended , bowel sounds are present. Extremities: Normal to inspection, no edema no cyanosis Medications Medication Current Medications Lorazepam (Ativan) 1 mg Q5M PRN IV SEIZURES; Start 04/24/19 at 21:30 IV Flush (NS 3 ml) 3 ml PER PROTOCOL IV ; Start 04/24/19 at 21:30 Ondansetron HCl (Zofran Inj) 4 mg Q6H PRN IV NAUSEA/VOMITING; Start 04/24/19 at 21:30 Acetaminophen (Tylenol Tab) 650 mg Q6H PRN PO .PAIN 1-3 OR TEMP Last administered on 04/25/19 08:53; Admin Dose 650 MG; Start 04/24/19 at 21:30 Docusate Sodium (Colace) 100 mg Q12H PRN PO .CONSTIPATION; Start 04/24/19 at 21:30 Bisacodyl (Dulcolax) 5 mg DAILY PRN PO .CONSTIPATION; Start 04/24/19 at 21:30 Levetiracetam (Keppra) 500 mg BID PO Last administered on 04/26/19 08:49; Admin Dose 500 MG; Start 04/25/19 at 09:00 Topiramate (Topamax) 25 mg BID PO Last administered on 04/26/19 08:49; Admin Dose 25 MG; Start 04/25/19 at 15:00 Dexamethasone (Decadron) 2 mg Q8 PO Last administered on 04/26/19 06:30; Admin Dose 2 MG; Start 04/25/19 at 14:00 Lidocaine (Xylocaine (Viscous)) 15 ml QID PRN PO tongue pain Last administered on 04/25/19 17:51; Admin Dose 15 ML; Start 04/25/19 at 15:30 MARGARET HAM MD Apr 26, 2019 10:25
[2019-04-26] MEDS: HYDROCHLOROTHIAZIDE 12.5 MG CAP PO SCH (14:16)
[2019-04-26] MEDS: LOSARTAN 50 MG TAB PO SCH (14:16)
--- NOTE | 2019-04-26 16:29 | PREAC ---
Date/Time of Note Date/Time of Note DATE: 04/26/19 TIME: 16:28 Anesthesia Eval and Record Evaluation Time Pre-Procedure Interview DATE: 04/26/19 TIME: 16:28 Age 43 Sex female NPO: 8 hrs Preoperative diagnosis MENINGIOMA Planned procedure RIGHT TEMPORAL CRANIOTOMY Past Medical History Past Medical History: Includes Cardio: HTN Neuro: Seizure disorder GI: Morbid obesity Surgery & Anesthesia Issues No known issue Meds Anticoagulation: No Beta Hubert within 24 hr: No Reason Beta Hubert not given: Pt. not on B-Hubert Reported Medications Irbesartan-Hydrochlorothiazide (Irbesartan-Hydrochlorothiazide) 150-12.5 Mg Tab, TAB PO DAILY, TAB TAKE 1 OR 2 TAB DAILY 04/24/19 Current Medications Lorazepam (Ativan) 1 mg Q5M PRN IV SEIZURES; Start 04/24/19 at 21:30 IV Flush (NS 3 ml) 3 ml PER PROTOCOL IV ; Start 04/24/19 at 21:30 Ondansetron HCl (Zofran Inj) 4 mg Q6H PRN IV NAUSEA/VOMITING; Start 04/24/19 at 21:30 Acetaminophen (Tylenol Tab) 650 mg Q6H PRN PO .PAIN 1-3 OR TEMP Last administered on 04/25/19at 08:53; Admin Dose 650 MG; Start 04/24/19 at 21:30 Docusate Sodium (Colace) 100 mg Q12H PRN PO .CONSTIPATION; Start 04/24/19 at 21:30 Bisacodyl (Dulcolax) 5 mg DAILY PRN PO .CONSTIPATION; Start 04/24/19 at 21:30 Levetiracetam (Keppra) 500 mg BID PO Last administered on 04/26/19at 08:49; Admin Dose 500 MG; Start 04/25/19 at 09:00 Topiramate (Topamax) 25 mg BID PO Last administered on 04/26/19 08:49; Admin Dose 25 MG; Start 04/25/19 at 15:00 Dexamethasone (Decadron) 2 mg Q8 PO Last administered on 04/26/19at 14:16; Admin Dose 2 MG; Start 04/25/19 at 14:00 Lidocaine (Xylocaine (Viscous)) 15 ml QID PRN PO tongue pain Last administered on 04/25/19at 17:51; Admin Dose 15 ML; Start 04/25/19 at 15:30 Losartan Potassium (Cozaar) 50 mg DAILY PO Last administered on 04/26/19at 14:16; Admin Dose 50 MG; Start 04/26/19 at 13:00 Hydrochlorothiazide (Hydrochlorothiazide) 12.5 mg DAILY PO Last administered on 04/26/19at 14:16; Admin Dose 12.5 MG; Start 04/26/19 at 13:00 Meds reviewed: Yes Allergies Coded Allergies: No Known Allergy (Unverified , 04/24/19) Allergies Reviewed: Yes Labs/Studies Labs Reviewed: Reviewed by anesthesiologist Result Diagram: 04/25/1946 04/25/1946 test: Negative Studies: ECG (SR), CXR Pre-procedure Exam Last vitals Vital Signs Date Temp Pulse Resp B/P (MAP) Pulse Ox O2 O2 Flow FiO2 Time Delivery Rate 04/26/19 98.8 64 18 122/68 98 Room Air 15:24 (86) 04/26/19 2.0 08:00 Airway: Adequate mouth opening Mallampati: Mallampati II Teeth: Normal Lung: Normal Heart: Normal ASA Physical Status ASA physical status: 3 Emergency: None Planned Anesthetic General/MAC: ETT Pre-operative Attestations Prior to commencing anesthesia and surgery, the patient was re-evaluated, there was verification of: *The patient's identity *The results of appropriate recent lab work and preoperative vital signs *The above evaluation not changing prior to induction *Anesthetic plan, risk benefits, alternative and complications discussed with patient/family; questions answered; patient/family understands, accepts and wishes to proceed. OFELIA HUMPHREY Apr 26, 2019 16:29
[2019-04-26] MEDS: ACETAMINOPHEN 325 MG TAB PO PRN (20:08)
[2019-04-26] MEDS: DOCUSATE SODIUM 100 MG CAP PO PRN (20:48)
[2019-04-27] VITALS (50 sets, daily range): BP systolic 103–171; BP diastolic 58–90; PULSE 58–80; RESP 9–24
[2019-04-27] MEDS ORDERED: PROPOFOL 20 ML ONE (07:31)
--- NOTE | 2019-04-27 07:32 | OPR ---
Date/Time of Note Date/Time of Note DATE: 04/27/19 TIME: 07:28 Operative Report Procedure Date: Apr 27, 2019 Preoperative Diagnosis 1) Right temporal convexity meningioma 2) Cerebral edema 3) Seizure disorders Postoperative Diagnosis 1) Right temporal convexity meningioma 2) Cerebral edema 3) Seizure disorders Operation/Procedure Performed 1) Right temporal craniotomy for resection of meningioma (Leong grade 1) 2) Use of the intraoperative microscope 3) Neuronavigation Surgeon Jacob Blair M.D. Clerical Grader None Anesthesia Type: general Estimated Blood Loss: 100 - 150 ml's Transfusion none Specimen Right parietal meningioma to pathology Grafts/Implants none Tubes/Drains none Complications none Pt Condition Post Procedure: stable Disposition: other (ICU) Indications Ms. Duenas is a 43 year old left-handed woman who had a first-time onset general tonic clonic seizure on 04/25/2019. The seizure was reported to originate on the left side. She has had no more seizures, but MRI demonstrated the presence of a right posterior temporal meningioma with significant peritumoral edema. I discussed the options of observation, surgery and radiation with the patient and recommended surgery given her age, the tumor size, the cerebral edema, and the seizure occurrence. She understands the risks and benefits and elected to proceed. Procedure Description Ms. Duenas was brought back to the operating room where general endotracheal anesthesia was induced without difficulty. Dexamethasone and antibiotics were given. She placed in the supine position, with the head turned to the left and right side up. [facility] neuronavigation was registered and used to plan the incision. This area was then prepped and draped in the usual sterile fashion. The bovie electrocautery was used to start the incision and was carried down through the muscle to the bone. Periosteal elevators were used to elevate the soft-tissues laterally. The neuronavigation was then used to plan the craniotomy, past the border of the tumor for a complete dural resection. The craniotomy was performed by making three colleen holes. There were very unusually large veins within the skull that had been seen on the preop imaging. The underside of the bone was drilled to remove any hyperostosis. The dura was then opened in a large emmonak around the tumor. This dura was then elevated and the tumor brain interface was identified and carefully dissected. The brain was very swollen and the tumor started expelling itself from the cavity. The tumor was dissected carefully from the brain. A large Arely branch was preserved anterior to the lesion. A small draining vein was involved with the lesion deep required sacrifice to remove the tumor. The og had been clearly violated by tumor, consistent with the cerebral edema. Once the entire tumor was removed, careful hemostasis was achieved using gelfoam soaked in thrombin and surgicel. The head was further elevated and mannitol was given to relax the brain. The PCO2 was already 30. A graft of duragen was placed over the new dural defect. The craniotomy flap was then replaced with titanium plates. The wound was then washed with copious antibiotic irrigation. The scalp was closed with interrupted vicryl suture for the temporalis muscle and galea. The scalp was closed with lyla. A sterile dressing was applied The patient was removed from Hernández 3-point head fixation and successfully extubated. All sponge and needle counts were correct at the end of the case. JACOB BLAIR MD Apr 27, 2019 07:32
[2019-04-27] MEDS ORDERED: ROCURONIUM 50 MG INJ ONE (07:33)
[2019-04-27] MEDS ORDERED: LIDOCAINE 2% (SDV) 5 ML INJ ONE (07:33)
[2019-04-27] MEDS ORDERED: DEXAMETHASONE 4 MG/ML 5 ML INJ ONE (07:35)
[2019-04-27] MEDS ORDERED: CEFAZOLIN 1 GM INJ ONE (07:35)
[2019-04-27] MEDS ORDERED: GELATIN SIZE 100 SPONGE ONE (07:59)
[2019-04-27] MEDS ORDERED: THROMBIN 5000 UNIT (RECOTHROM) VIAL ONE (07:59)
[2019-04-27] MEDS ORDERED: POVIDONE IODINE 10% 28.4 GM OINT ONE (08:00)
[2019-04-27] MEDS ORDERED: POLYMYXIN/BACITRACIN 1L IRRIG ONE (08:00)
[2019-04-27] MEDS ORDERED: LIDOCAINE 1%/EPI 30 ML INJ ONE (08:00)
[2019-04-27] MEDS ORDERED: NEOMYC/POLYMYX/BACIT 30 GM OINT ONE (08:00)
[2019-04-27] MEDS ORDERED: BACITRACIN 50000 UNITS INJ ONE (08:03)
[2019-04-27] MEDS: LOSARTAN 50 MG TAB PO SCH (10:21)
[2019-04-27] MEDS: DEXAMETHASONE 2 MG TAB PO SCH (10:21)
[2019-04-27] MEDS: HYDROCHLOROTHIAZIDE 12.5 MG CAP PO SCH (10:22)
[2019-04-27] MEDS: TOPIRAMATE 25 MG TAB PO SCH ×2 (10:22→20:48)
[2019-04-27] MEDS: LEVETIRACETAM 500 MG TAB PO SCH ×2 (10:22→20:47)
[2019-04-27] MEDS ORDERED: MANNITOL 20% 500 ML IV SCH (10:30)
--- NOTE | 2019-04-27 10:34 | CONS ---
Assessment/Plan Assessment/Plan Assessment/Plan (Recall) 43 F c/ migraines and other comorbidities, who presents following a witnessed generalized convulsion. She was found on brain imaging to have an extraaxial lesion w/ adjacent parenchymal edema..which is certainly the underlying cause.. Surgical resection scheduled for 04/27 P: Continue Keppra for now; Transitioning to Topamax monotherapy for seizure ppx Ativan iv prn prolonged seizure or cluster Other management and supportive care per primary She can not drive in the short-term Will follow clinically Consultation Date/Type/Reason Admit Date/Time Apr 25, 2019 at 02:42 Type of Consult Neurology Reason for Consultation seizure Requesting Provider: GLORIA BLAND Date/Time of Note DATE: 04/27/19 TIME: 10:33 24 HR Interval Summary Free Text/Dictation In OR Exam/Review of Systems Exam Vitals Vital Signs Date Temp Pulse Resp B/P (MAP) Pulse Ox O2 O2 Flow FiO2 Time Delivery Rate 04/27/19 98.4 61 20 103/61 97 03:55 (75) 04/26/19 Room Air 15:24 04/26/19 2.0 08:00 Intake and Output 04/26/19 04/26/19 04/27/19 1515:00 23:00 07:00 IntakeIntake Total 400 ml 740 ml 350 ml BalanceBalance 400 ml 740 ml 350 ml Results Result Diagram: 04/25/19 0548 04/25/19 0548 Medications Medication Current Medications Lorazepam (Ativan) 1 mg Q5M PRN IV SEIZURES; Start 04/24/19 at 21:30 IV Flush (NS 3 ml) 3 ml PER PROTOCOL IV ; Start 04/24/19 at 21:30 Ondansetron HCl (Zofran Inj) 4 mg Q6H PRN IV NAUSEA/VOMITING; Start 04/24/19 at 21:30 Acetaminophen (Tylenol Tab) 650 mg Q6H PRN PO .PAIN 1-3 OR TEMP Last administered on 04/26/19at 20:08; Admin Dose 650 MG; Start 04/24/19 at 21:30 Docusate Sodium (Colace) 100 mg Q12H PRN PO .CONSTIPATION Last administered on 04/26/19at 20:48; Admin Dose 100 MG; Start 04/24/19 at 21:30 Bisacodyl (Dulcolax) 5 mg DAILY PRN PO .CONSTIPATION; Start 04/24/19 at 21:30 Levetiracetam (Keppra) 500 mg BID PO Last administered on 04/26/19 20:08; Admin Dose 500 MG; Start 04/25/19 at 09:00 Topiramate (Topamax) 25 mg BID PO Last administered on 04/26/19 20:08; Admin Dose 25 MG; Start 04/25/19 at 15:00 Dexamethasone (Decadron) 2 mg Q8 PO Last administered on 04/26/19 20:48; Admin Dose 2 MG; Start 04/25/19 at 14:00 Lidocaine (Xylocaine (Viscous)) 15 ml QID PRN PO tongue pain Last administered on 04/25/19 17:51; Admin Dose 15 ML; Start 04/25/19 at 15:30 Losartan Potassium (Cozaar) 50 mg DAILY PO Last administered on 04/26/19 14:16; Admin Dose 50 MG; Start 04/26/19 at 13:00 Hydrochlorothiazide (Hydrochlorothiazide) 12.5 mg DAILY PO Last administered on 04/26/19 14:16; Admin Dose 12.5 MG; Start 04/26/19 at 13:00 CURLY LEDESMA Apr 27, 2019 10:34
[2019-04-27] MEDS ORDERED: ONDANSETRON 4 MG INJ ONE (10:47)
[2019-04-27] MEDS ORDERED: SUGAMMADEX SODIUM 200 MG/2 ML VIAL IV ONE (10:47)
[2019-04-27] MEDS ORDERED: LABETALOL HCL 20MG INJ ONE (10:57)
--- NOTE | 2019-04-27 11:19 | PAC ---
Date/Time of Note Date/Time of Note DATE: 04/27/19 TIME: 11:18 Post-Anesthesia Notes Post-Anesthesia Note Last documented vital signs Vital Signs Date Temp Pulse Resp B/P (MAP) Pulse Ox O2 O2 Flow FiO2 Time Delivery Rate 04/27/19 98.4 61 20 167/85 97 1119 04/26/19 Room Air 15:24 04/26/19 2.0 08:00 Activity: WNL Respiratory function: WNL Cardiovascular function: WNL Mental status: Baseline Pain reasonably controlled: Yes Hydration appropriate: Yes Nausea/Vomiting absent: Yes MARC VILLALOBOS Apr 27, 2019 11:19
[2019-04-27] MEDS ORDERED: ONDANSETRON 4 MG INJ IV PRN (11:30)
[2019-04-27] MEDS ORDERED: MEPERIDINE 25 MG INJ IV PRN (11:30)
[2019-04-27] MEDS ORDERED: LABETALOL HCL 20MG INJ IV PRN (11:30)
[2019-04-27] MEDS ORDERED: EPHEDrine 25 MG/5 ML SYG IV PRN (11:30)
[2019-04-27] MEDS ORDERED: MIDAZOLAM 1 MG/ML 2 ML INJ IV PRN (11:30)
[2019-04-27] MEDS ORDERED: hydrALAzine 20 MG INJ IV PRN (11:30)
[2019-04-27] MEDS ORDERED: ALBUTEROL 0.083% (NEB) 2.5 MG/3 ML AMP HHN PRN (11:30)
[2019-04-27] MEDS ORDERED: DIPHENHYDRAMINE 50 MG INJ IV PRN (11:30)
[2019-04-27] MEDS ORDERED: HYDROmorphONE 0.5 MG/0.5 ML SYG IV PRN ×3 (11:30)
[2019-04-27] MEDS: DEXAMETHASONE 4 MG/ML 1 ML INJ IV SCH ×2 (11:57→17:30)
[2019-04-27] MEDS: SOD CHLORIDE 0.9% 1,000 ML IV SCH (12:01)
[2019-04-27] MEDS: CEFAZOLIN 1 GM/50 ML (PMX) 50 ML IVPB SCH ×2 (13:31→21:27)
--- NOTE | 2019-04-27 14:20 | PN ---
Date/Time of Note Date/Time of Note DATE: 04/27/19 TIME: 14:17 Assessment/Plan VTE Prophylaxis Risk score (from Ns)>0 risk: 1 SCD applied (from Ns): Yes Pharmacological prophylaxis: NA/contraindicated Pharm contraindication: surgical contra Lines[facility] Ur[facility] Cath still in place: Yes Reason Cath still needed: other (indicate) (postoperative) Assessment/Plan Assessment/Plan 43 yo woman with new onset seizure found to have #1 new onset seizure: - Likely due to 2.5 cm R temporal mass (likely meningioma) seen on CT and MRI. - Now s/p operative removal 04/27/19. - Transitioning from Keppra to topiramate. - Seizure precautions - Dr. Mackey following. - DMV was notified by the ED. #2 R temporal mass (likely meningioma) seen on CT and MRI - Dr. Zarate consulted. - s/p surgical resection 04/27. #3 hypertension: We will resume patient's home blood pressure medication. Low- salt diet #4 morbidly obese: Low calorie diet #5 DVT GI prophylaxis: SCDs, no GI prophylaxis indicated Result Diagram: 04/25/19 0548 04/25/19 0548 Subjective 24 Hr Interval Summary Free Text/Dictation Patient taken for neurosurgery today by Dr. Zarate. Uncomplicated. Postoperatively admitted to ICU. Awake, drowsy. Doing well. Exam/Review of Systems Exam Vitals Vital Signs Date Temp Pulse Resp B/P (MAP) Pulse Ox O2 O2 Flow FiO2 Time Delivery Rate 04/27/19 72 14 139/70 100 12:45 (93) 04/27/19 Nasal 2.0 12:00 Cannula 04/27/19 98.9 12:00 Intake and Output 04/26/19 04/26/19 04/27/19 1515:00 23:00 07:00 IntakeIntake Total 400 ml 740 ml 350 ml BalanceBalance 400 ml 740 ml 350 ml Exam General: Obese woman sitting up, lethargic but arousable postoperatively. HEENT: Atraumatic, normocephalic. Chest: Nontender Lungs: Clear to auscultation bilaterally no crackles rales or wheezing Heart: Normal S1-S2, Regular rhythm and rate. No murmur, S3, or S4 Abdomen: Morbidly obese, soft , nontender, nondistended , bowel sounds are present. Extremities: Normal to inspection, no edema no cyanosis Medications Medication Current Medications Lorazepam (Ativan) 1 mg Q5M PRN IV SEIZURES; Start 04/24/19 at 21:30 IV Flush (NS 3 ml) 3 ml PER PROTOCOL IV ; Start 04/24/19 at 21:30 Ondansetron HCl (Zofran Inj) 4 mg Q6H PRN IV NAUSEA/VOMITING; Start 04/24/19 at 21:30 Acetaminophen (Tylenol Tab) 650 mg Q6H PRN PO .PAIN 1-3 OR TEMP Last administered on 04/26/19 20:08; Admin Dose 650 MG; Start 04/24/19 at 21:30 Docusate Sodium (Colace) 100 mg Q12H PRN PO .CONSTIPATION Last administered on 04/26/19 20:48; Admin Dose 100 MG; Start 04/24/19 at 21:30 Bisacodyl (Dulcolax) 5 mg DAILY PRN PO .CONSTIPATION; Start 04/24/19 at 21:30 Levetiracetam (Keppra) 500 mg BID PO Last administered on 04/26/19 20:08; Admin Dose 500 MG; Start 04/25/19 at 09:00 Lidocaine (Xylocaine (Viscous)) 15 ml QID PRN PO tongue pain Last administered on 04/25/19 17:51; Admin Dose 15 ML; Start 04/25/19 at 15:30 Losartan Potassium (Cozaar) 50 mg DAILY PO Last administered on 04/26/19 14:16; Admin Dose 50 MG; Start 04/26/19 at 13:00 Hydrochlorothiazide (Hydrochlorothiazide) 12.5 mg DAILY PO Last administered on 04/26/19 14:16; Admin Dose 12.5 MG; Start 04/26/19 at 13:00 Topiramate (Topamax) 50 mg BID PO ; Start 04/27/19 at 21:00 Hydromorphone HCl (Dilaudid) 0.2 mg ICU RECOVERY PRN IV MILD PAIN LEVEL 1-3; Start 04/27/19 at 11:30; Stop 04/27/19 at 16:00 Hydromorphone HCl (Dilaudid) 0.4 mg ICU RECOVERY PRN IV MODERATE PAIN LEVEL 4-6 Last administered on 04/27/19at 12:17; Admin Dose 0.4 MG; Start 04/27/19 at 11:30; Stop 04/27/19 at 16:00 Hydromorphone HCl (Dilaudid) 0.6 mg ICU RECOVERY PRN IV SEVERE PAIN LEVEL 7-10; Start 04/27/19 at 11:30; Stop 04/27/19 at 16:00 Ondansetron HCl (Zofran Inj) 4 mg ICU RECOVERY PRN IV NAUSEA/VOMITING; Start 04/27/19 at 11:30; Stop 04/27/19 at 16:00 Labetalol HCl (Labetalol) 5 mg ICU RECOVERY PRN IV HIGH BLOOD PRESSURE; Start 04/27/19 at 11:30; Stop 04/27/19 at 16:00 Hydralazine HCl (Apresoline) 5 mg ICU RECOVERY PRN IV HIGH BLOOD PRESSURE Last administered on 04/27/19at 11:49; Admin Dose 5 MG; Start 04/27/19 at 11:30; Stop 04/27/19 at 16:00 Ephedrine Sulfate 5 mg PACU ORDER PRN IV BLOOD PRESSURRE SUPPORT; Start 04/27/19 at 11:30; Stop 04/27/19 at 16:00 Albuterol (Proventil 0.083% (Neb)) 2.5 mg ICU RECOVERY PRN HHN .WHEEZING; Start 04/27/19 at 11:30 Meperidine HCl (Demerol) 25 mg ICU RECOVERY PRN IV .RIGORS; Start 04/27/19 at 11:30; Stop 04/27/19 at 16:00 Diphenhydramine HCl (Benadryl) 25 mg ICU RECOVERY PRN IV .PRURITUS; Start 04/27/19 at 11:30; Stop 04/27/19 at 16:00 Midazolam HCl (Versed) 0.5 mg ICU RECOVERY PRN IV .ANXIETY; Start 04/27/19 at 11 :30; Stop 04/27/19 at 16:00 Dexamethasone (Decadron) 4 mg Q6 IV Last administered on 04/27/19at 11:57; Admin Dose 4 MG; Start 04/27/19 at 12:00; Stop 04/29/19 at 11:59 Cefazolin Sodium 50 ml @ 100 mls/hr Q8 IVPB Last administered on 04/27/19at 13:31; Admin Dose 100 MLS/HR; Start 04/27/19 at 14:00; Stop 04/29/19 at 13:59 Sodium Chloride 1,000 ml @ 75 mls/hr [id number] IV Last administered on 04/27/19at 12:01; Admin Dose 75 MLS/HR; Start 04/27/19 at 12:00 MARGARET HAM MD Apr 27, 2019 14:20
[2019-04-27] MEDS: HYDROmorphONE 0.5 MG/0.5 ML SYG IV PRN ×2 (16:51→20:49)
[2019-04-28] VITALS (43 sets, daily range): BP systolic 89–146; BP diastolic 51–85; PULSE 54–75; RESP 9–21
[2019-04-28] MEDS: HYDROmorphONE 0.5 MG/0.5 ML SYG IV PRN ×3 (00:57→20:35)
[2019-04-28] MEDS: DEXAMETHASONE 4 MG/ML 1 ML INJ IV SCH ×4 (00:57→17:45)
[2019-04-28] MEDS: SOD CHLORIDE 0.9% 1,000 ML IV SCH ×2 (00:58→17:02)
[2019-04-28] MEDS: CEFAZOLIN 1 GM/50 ML (PMX) 50 ML IVPB SCH ×3 (05:30→22:10)
[2019-04-28] MEDS: LEVETIRACETAM 500 MG TAB PO SCH ×2 (08:51→20:17)
[2019-04-28] MEDS: HYDROCHLOROTHIAZIDE 12.5 MG CAP PO SCH (08:53)
[2019-04-28] MEDS: TOPIRAMATE 25 MG TAB PO SCH ×2 (08:53→20:18)
[2019-04-28] MEDS: LOSARTAN 50 MG TAB PO SCH (08:54)
--- NOTE | 2019-04-28 09:59 | PN ---
Date/Time of Note Date/Time of Note DATE: 04/28/19 TIME: 09:57 Assessment/Plan VTE Prophylaxis Risk score (from Ns)>0 risk: 5 SCD applied (from Ns): Yes Pharmacological prophylaxis: NA/contraindicated Pharm contraindication: surgical contra Lines/Catheters IV C[facility] Type (from [facility]): A Line Urinary Cath still in place: Yes Reason Cath still needed: other (indicate) (postoperative) Assessment/Plan Assessment/Plan 43 yo woman with new onset seizure found to have #1 new onset seizure: - Likely due to 2.5 cm R temporal mass (likely meningioma) seen on CT and MRI. - Now s/p operative removal 04/27/19. - Transitioning from Keppra to topiramate. - Seizure precautions - Dr. Mackey following. - DMV was notified by the ED. #2 R temporal mass (likely meningioma) seen on CT and MRI - Dr. Zarate consulted. - s/p surgical resection 04/27. - 2 days of postoperative antibiotics and dexamethasone. #3 hypertension: We will resume patient's home blood pressure medication. Low- salt diet #4 morbidly obese: Low calorie diet #5 DVT GI prophylaxis: SCDs, no GI prophylaxis indicated 35 minutes critical care time spent on this patient. Result Diagram: 04/28/19 0530 04/28/19 0530 Results 24hrs Laboratory Tests Test 04/28/19 05:30 White Blood Count 19.1 #H Red Blood Count 4.26 Hemoglobin 12.1 Hematocrit 37.8 Mean Corpuscular Volume 88.7 Mean Corpuscular Hemoglobin 28.4 L Mean Corpuscular Hemoglobin Concent 32.0 Red Cell Distribution Width 15.1 H Platelet Count 323 Mean Platelet Volume 10.1 Immature Granulocytes % 0.600 H Neutrophils % 85.9 H Lymphocytes % 7.4 L Monocytes % 6.0 Eosinophils % 0.0 Basophils % 0.1 Nucleated Red Blood Cells % 0.0 Immature Granulocytes # 0.120 H Neutrophils # 16.4 H Lymphocytes # 1.4 Monocytes # 1.1 H Eosinophils # 0.0 Basophils # 0.0 Nucleated Red Blood Cells # 0.0 Sodium Level 138 Potassium Level 3.6 Chloride Level 112 H Carbon Dioxide Level 20 L Anion Gap 6 Blood Urea Nitrogen 11 Creatinine 0.66 Est Glomerular Filtrat Rate mL/min > 60 Glucose Level 149 Calcium Level 8.4 Total Bilirubin 0.4 Direct Bilirubin 0.00 Indirect Bilirubin 0.4 Aspartate Amino Transf (AST/SGOT) 22 Alanine Aminotransferase (ALT/SGPT) 32 Alkaline Phosphatase 60 Total Protein 6.9 Albumin 3.3 Globulin 3.60 H Albumin/Globulin Ratio 0.91 Subjective 24 Hr Interval Summary Free Text/Dictation No acute overnight events. Pain adequately controlled with IV dilaudid Tolerating full liquids this morning. Exam/Review of Systems Exam Vitals Vital Signs Date Temp Pulse Resp B/P (MAP) Pulse Ox O2 O2 Flow FiO2 Time Delivery Rate 04/28/19 62 10 120/65 99 06:45 (83) 04/28/19 Nasal 06:00 Cannula 04/28/19 98.8 00:00 04/27/19 2.0 22:00 Intake and Output 04/27/19 04/27/19 04/28/19 1515:00 23:00 07:00 IntakeIntake Total 1695 ml 850 ml 525 ml OutputOutput Total 1200 ml 950 ml 510 ml BalanceBalance 495 ml -100 ml 15 ml Exam General: Obese woman sitting up, awake and alert HEENT: R lateral scalp dressing clean and dry. Chest: Nontender Lungs: Clear to auscultation bilaterally no crackles rales or wheezing Heart: Normal S1-S2, Regular rhythm and rate. No murmur, S3, or S4 Abdomen: Morbidly obese, soft , nontender, nondistended , bowel sounds are present. Extremities: Normal to inspection, no edema no cyanosis Results Results 24hrs Laboratory Tests Test 04/28/19 05:30 White Blood Count 19.1 #H Red Blood Count 4.26 Hemoglobin 12.1 Hematocrit 37.8 Mean Corpuscular Volume 88.7 Mean Corpuscular Hemoglobin 28.4 L Mean Corpuscular Hemoglobin Concent 32.0 Red Cell Distribution Width 15.1 H Platelet Count 323 Mean Platelet Volume 10.1 Immature Granulocytes % 0.600 H Neutrophils % 85.9 H Lymphocytes % 7.4 L Monocytes % 6.0 Eosinophils % 0.0 Basophils % 0.1 Nucleated Red Blood Cells % 0.0 Immature Granulocytes # 0.120 H Neutrophils # 16.4 H Lymphocytes # 1.4 Monocytes # 1.1 H Eosinophils # 0.0 Basophils # 0.0 Nucleated Red Blood Cells # 0.0 Sodium Level 138 Potassium Level 3.6 Chloride Level 112 H Carbon Dioxide Level 20 L Anion Gap 6 Blood Urea Nitrogen 11 Creatinine 0.66 Est Glomerular Filtrat Rate mL/min > 60 Glucose Level 149 Calcium Level 8.4 Total Bilirubin 0.4 Direct Bilirubin 0.00 Indirect Bilirubin 0.4 Aspartate Amino Transf (AST/SGOT) 22 Alanine Aminotransferase (ALT/SGPT) 32 Alkaline Phosphatase 60 Total Protein 6.9 Albumin 3.3 Globulin 3.60 H Albumin/Globulin Ratio 0.91 Medications Medication Current Medications Lorazepam (Ativan) 1 mg Q5M PRN IV SEIZURES; Start 04/24/19 at 21:30 IV Flush (NS 3 ml) 3 ml PER PROTOCOL IV ; Start 04/24/19 at 21:30 Ondansetron HCl (Zofran Inj) 4 mg Q6H PRN IV NAUSEA/VOMITING; Start 04/24/19 at 21:30 Acetaminophen (Tylenol Tab) 650 mg Q6H PRN PO .PAIN 1-3 OR TEMP Last administered on 04/26/19 20:08; Admin Dose 650 MG; Start 04/24/19 at 21:30 Docusate Sodium (Colace) 100 mg Q12H PRN PO .CONSTIPATION Last administered on 04/26/19 20:48; Admin Dose 100 MG; Start 04/24/19 at 21:30 Bisacodyl (Dulcolax) 5 mg DAILY PRN PO .CONSTIPATION; Start 04/24/19 at 21:30 Levetiracetam (Keppra) 500 mg BID PO Last administered on 04/28/19 08:51; Admin Dose 500 MG; Start 04/25/19 at 09:00 Lidocaine (Xylocaine (Viscous)) 15 ml QID PRN PO tongue pain Last administered on 04/25/19 17:51; Admin Dose 15 ML; Start 04/25/19 at 15:30 Losartan Potassium (Cozaar) 50 mg DAILY PO Last administered on 04/28/19 08:54; Admin Dose 50 MG; Start 04/26/19 at 13:00 Hydrochlorothiazide (Hydrochlorothiazide) 12.5 mg DAILY PO Last administered on 04/28/19 08:53; Admin Dose 12.5 MG; Start 04/26/19 at 13:00 Topiramate (Topamax) 50 mg BID PO Last administered on 8/9/19at 08:53; Admin Dose 50 MG; Start 04/27/19 at 21:00 Albuterol (Proventil 0.083% (Neb)) 2.5 mg ICU RECOVERY PRN HHN .WHEEZING; Start 04/27/19 at 11:30 Dexamethasone (Decadron) 4 mg Q6 IV Last administered on 04/28/19at 05:30; Admin Dose 4 MG; Start 04/27/19 at 12:00; Stop 04/29/19 at 11:59 Cefazolin Sodium 50 ml @ 100 mls/hr Q8 IVPB Last administered on 04/28/19at 05:30; Admin Dose 100 MLS/HR; Start 04/27/19 at 14:00; Stop 04/29/19 at 13:59 Sodium Chloride 1,000 ml @ 75 mls/hr [id number] IV Last administered on 04/28/19at 00:58; Admin Dose 75 MLS/HR; Start 04/27/19 at 12:00 Hydromorphone HCl (Dilaudid) 0.5 mg Q6H PRN IV SEVERE PAIN LEVEL 7-10 Last administered on 04/28/19at 06:56; Admin Dose 0.5 MG; Start 04/27/19 at 17:00 MARGARET HAM MD Apr 28, 2019 09:59
[2019-04-28] MEDS: ACETAMINOPHEN 325 MG TAB PO PRN ×2 (12:00→17:45)
--- NOTE | 2019-04-28 13:35 | CONS ---
Assessment/Plan Assessment/Plan Assessment/Plan (Daily) POD1 crani for meningioma - Transfer floor - PT, out of bed - reg diet - d/c Central line, a-line, calderón - dex/ancef to stop tomorrow Consultation Date/Type/Reason Admit Date/Time Apr 25, 2019 at 02:42 Initial Consult Date 04/25/19 Type of Consult Neurosurgery Requesting Provider: GLORIA BLAND Date/Time of Note DATE: 04/28/19 TIME: 13:33 24 HR Interval Summary Free Text/Dictation POD1 R temporal craniotomy for resection of meningioma Doing well, BP well controlled. No speech issues Exam/Review of Systems Exam Vitals Vital Signs Date Temp Pulse Resp B/P (MAP) Pulse Ox O2 O2 Flow FiO2 Time Delivery Rate 04/28/19 98.0 13:21 04/28/19 64 19 136/85 100 Room Air 13:00 (102) 04/27/19 2.0 22:00 Intake and Output 04/27/19 04/27/19 04/28/19 1515:00 23:00 07:00 IntakeIntake Total 1695 ml 850 ml 525 ml OutputOutput Total 1200 ml 950 ml 510 ml BalanceBalance 495 ml -100 ml 15 ml Exam Ox3, fluent 5/5 strength Results Result Diagram: 04/28/19 0530 04/28/19 0530 Results 24hrs Laboratory Tests Test 04/28/19 05:30 White Blood Count 19.1 #H Red Blood Count 4.26 Hemoglobin 12.1 Hematocrit 37.8 Mean Corpuscular Volume 88.7 Mean Corpuscular Hemoglobin 28.4 L Mean Corpuscular Hemoglobin Concent 32.0 Red Cell Distribution Width 15.1 H Platelet Count 323 Mean Platelet Volume 10.1 Immature Granulocytes % 0.600 H Neutrophils % 85.9 H Lymphocytes % 7.4 L Monocytes % 6.0 Eosinophils % 0.0 Basophils % 0.1 Nucleated Red Blood Cells % 0.0 Immature Granulocytes # 0.120 H Neutrophils # 16.4 H Lymphocytes # 1.4 Monocytes # 1.1 H Eosinophils # 0.0 Basophils # 0.0 Nucleated Red Blood Cells # 0.0 Sodium Level 138 Potassium Level 3.6 Chloride Level 112 H Carbon Dioxide Level 20 L Anion Gap 6 Blood Urea Nitrogen 11 Creatinine 0.66 Est Glomerular Filtrat Rate mL/min > 60 Glucose Level 149 Calcium Level 8.4 Total Bilirubin 0.4 Direct Bilirubin 0.00 Indirect Bilirubin 0.4 Aspartate Amino Transf (AST/SGOT) 22 Alanine Aminotransferase (ALT/SGPT) 32 Alkaline Phosphatase 60 Total Protein 6.9 Albumin 3.3 Globulin 3.60 H Albumin/Globulin Ratio 0.91 Imaging Imaging MRI - complete resection, no complications Medications Medication Current Medications Lorazepam (Ativan) 1 mg Q5M PRN IV SEIZURES; Start 04/24/19 at 21:30 IV Flush (NS 3 ml) 3 ml PER PROTOCOL IV ; Start 04/24/19 at 21:30 Ondansetron HCl (Zofran Inj) 4 mg Q6H PRN IV NAUSEA/VOMITING; Start 04/24/19 at 21:30 Acetaminophen (Tylenol Tab) 650 mg Q6H PRN PO .PAIN 1-3 OR TEMP Last administered on 04/28/19 12:00; Admin Dose 650 MG; Start 04/24/19 at 21:30 Docusate Sodium (Colace) 100 mg Q12H PRN PO .CONSTIPATION Last administered on 04/26/19 20:48; Admin Dose 100 MG; Start 04/24/19 at 21:30 Bisacodyl (Dulcolax) 5 mg DAILY PRN PO .CONSTIPATION; Start 04/24/19 at 21:30 Levetiracetam (Keppra) 500 mg BID PO Last administered on 04/28/19 08:51; Admin Dose 500 MG; Start 04/25/19 at 09:00 Lidocaine (Xylocaine (Viscous)) 15 ml QID PRN PO tongue pain Last administered on 04/25/19 17:51; Admin Dose 15 ML; Start 04/25/19 at 15:30 Losartan Potassium (Cozaar) 50 mg DAILY PO Last administered on 04/28/19 08:54; Admin Dose 50 MG; Start 04/26/19 at 13:00 Hydrochlorothiazide (Hydrochlorothiazide) 12.5 mg DAILY PO Last administered on 04/28/19 08:53; Admin Dose 12.5 MG; Start 04/26/19 at 13:00 Topiramate (Topamax) 50 mg BID PO Last administered on 04/28/19 08:53; Admin Dose 50 MG; Start 04/27/19 at 21:00 Albuterol (Proventil 0.083% (Neb)) 2.5 mg ICU RECOVERY PRN HHN .WHEEZING; Start 04/27/19 at 11:30 Dexamethasone (Decadron) 4 mg Q6 IV Last administered on 04/28/19at 12:00; Admin Dose 4 MG; Start 04/27/19 at 12:00; Stop 04/29/19 at 11:59 Cefazolin Sodium 50 ml @ 100 mls/hr Q8 IVPB Last administered on 04/28/19at 05:30; Admin Dose 100 MLS/HR; Start 04/27/19 at 14:00; Stop 04/29/19 at 13:59 Sodium Chloride 1,000 ml @ 75 mls/hr [id number] IV Last administered on 04/28/19at 00:58; Admin Dose 75 MLS/HR; Start 04/27/19 at 12:00 Hydromorphone HCl (Dilaudid) 0.5 mg Q6H PRN IV SEVERE PAIN LEVEL 7-10 Last administered on 04/28/19at 06:56; Admin Dose 0.5 MG; Start 04/27/19 at 17:00 KASIA BLAIR MD Apr 28, 2019 13:35
[2019-04-29] MEDS: DEXAMETHASONE 4 MG/ML 1 ML INJ IV SCH ×2 (00:47→06:19)
[2019-04-29 03:10] VITALS: BP 140/70; PULSE 66; RESP 18
[2019-04-29] MEDS: CEFAZOLIN 1 GM/50 ML (PMX) 50 ML IVPB SCH (06:19)
[2019-04-29] MEDS: SOD CHLORIDE 0.9% 1,000 ML IV SCH ×3 (06:19→22:14)
[2019-04-29 07:56] VITALS: BP 128/64; PULSE 65; RESP 18
--- NOTE | 2019-04-29 09:30 | PN ---
Date/Time of Note Date/Time of Note DATE: 04/29/19 TIME: 09:27 Assessment/Plan VTE Prophylaxis Risk score (from Ns)>0 risk: 5 SCD applied (from Ns): Yes Pharmacological prophylaxis: NA/contraindicated Pharm contraindication: low risk/ambulating Lines/Catheters [facility]from [facility] Peripheral IV Urinary Cath still in place: No Assessment/Plan Assessment/Plan 43 yo woman with new onset seizure found to have 2.5 cm R temporal lobe mass. #1 new onset seizure: - Likely due to 2.5 cm R temporal mass (likely meningioma) seen on CT and MRI. - Now s/p operative removal 04/27/19. Pathology is still pending. - Transitioning from Keppra to topiramate. - Seizure precautions - Dr. Mackey following. - DMV was notified by the ED. #2 R temporal mass (likely meningioma) seen on CT and MRI - Dr. Zarate consulted. - s/p surgical resection 04/27. - 2 days of postoperative antibiotics and dexamethasone. #3 hypertension: We will resume patient's home blood pressure medication. Low- salt diet #4 morbidly obese: Low calorie diet #5 DVT GI prophylaxis: SCDs, no GI prophylaxis indicated Result Diagram: 04/28/19 0530 04/28/19 0530 Subjective 24 Hr Interval Summary Free Text/Dictation No acute overnight events. Walking with physical therapy today. Overall doing well. Still moderate headache and light sensitivity. Exam/Review of Systems Exam Vitals Vital Signs Date Temp Pulse Resp B/P (MAP) Pulse Ox O2 O2 Flow FiO2 Time Delivery Rate 04/29/19 98.1 65 18 128/64 99 Room Air 07:56 (85) 04/27/19 2.0 22:00 Intake and Output 04/28/19 04/28/19 04/29/19 1515:00 23:00 07:00 IntakeIntake Total 100 ml 1300 ml OutputOutput Total 2050 ml BalanceBalance -2050 ml 100 ml 1300 ml Exam General: Obese woman sitting up, awake and alert HEENT: R lateral scalp dressing clean and dry. Chest: Nontender Lungs: Clear to auscultation bilaterally no crackles rales or wheezing Heart: Normal S1-S2, Regular rhythm and rate. No murmur, S3, or S4 Abdomen: Morbidly obese, soft , nontender, nondistended , bowel sounds are present. Extremities: Normal to inspection, no edema no cyanosis Medications Medication Current Medications Lorazepam (Ativan) 1 mg Q5M PRN IV SEIZURES; Start 04/24/19 at 21:30 IV Flush (NS 3 ml) 3 ml PER PROTOCOL IV ; Start 04/24/19 at 21:30 Ondansetron HCl (Zofran Inj) 4 mg Q6H PRN IV NAUSEA/VOMITING; Start 04/24/19 at 21:30 Acetaminophen (Tylenol Tab) 650 mg Q6H PRN PO .PAIN 1-3 OR TEMP Last administered on 04/28/19 17:45; Admin Dose 650 MG; Start 04/24/19 at 21:30 Docusate Sodium (Colace) 100 mg Q12H PRN PO .CONSTIPATION Last administered on 04/26/19 20:48; Admin Dose 100 MG; Start 04/24/19 at 21:30 Bisacodyl (Dulcolax) 5 mg DAILY PRN PO .CONSTIPATION; Start 04/24/19 at 21:30 Levetiracetam (Keppra) 500 mg BID PO Last administered on 04/28/19 20:17; Admin Dose 500 MG; Start 04/25/19 at 09:00 Lidocaine (Xylocaine (Viscous)) 15 ml QID PRN PO tongue pain Last administered on 04/25/19 17:51; Admin Dose 15 ML; Start 04/25/19 at 15:30 Losartan Potassium (Cozaar) 50 mg DAILY PO Last administered on 04/28/19 08:54; Admin Dose 50 MG; Start 04/26/19 at 13:00 Hydrochlorothiazide (Hydrochlorothiazide) 12.5 mg DAILY PO Last administered on 04/28/19 08:53; Admin Dose 12.5 MG; Start 04/26/19 at 13:00 Topiramate (Topamax) 50 mg BID PO Last administered on 04/28/19 20:18; Admin Dose 50 MG; Start 04/27/19 at 21:00 Albuterol (Proventil 0.083% (Neb)) 2.5 mg ICU RECOVERY PRN HHN .WHEEZING; Start 04/27/19 at 11:30 Dexamethasone (Decadron) 4 mg Q6 IV Last administered on 04/29/19at 06:19; Admin Dose 4 MG; Start 04/27/19 at 12:00; Stop 04/29/19 at 11:59 Cefazolin Sodium 50 ml @ 100 mls/hr Q8 IVPB Last administered on 04/29/19at 06:19; Admin Dose 100 MLS/HR; Start 04/27/19 at 14:00; Stop 04/29/19 at 13:59 Sodium Chloride 1,000 ml @ 75 mls/hr [id number] IV Last administered on 04/29/19at 06:19; Admin Dose 75 MLS/HR; Start 04/27/19 at 12:00 Hydromorphone HCl (Dilaudid) 0.5 mg Q6H PRN IV SEVERE PAIN LEVEL 7-10 Last administered on 04/28/19at 20:35; Admin Dose 0.5 MG; Start 04/27/19 at 17:00 MARGARET HAM MD Apr 29, 2019 09:30
[2019-04-29] MEDS: CEPASTAT LOZENGE MT PRN ×2 (09:36→12:49)
[2019-04-29] MEDS: LEVETIRACETAM 500 MG TAB PO SCH ×2 (09:37→20:27)
[2019-04-29] MEDS: LOSARTAN 50 MG TAB PO SCH (09:37)
[2019-04-29] MEDS: TOPIRAMATE 25 MG TAB PO SCH ×2 (09:38→20:26)
[2019-04-29] MEDS: HYDROCHLOROTHIAZIDE 12.5 MG CAP PO SCH (09:38)
[2019-04-29] MEDS: HYDROmorphONE 0.5 MG/0.5 ML SYG IV PRN ×2 (12:49→20:27)
[2019-04-29 14:06] VITALS: BP 133/69; PULSE 68; RESP 18
--- NOTE | 2019-04-29 14:45 | CONS ---
Assessment/Plan Assessment/Plan Assessment/Plan (Daily) POD2 craniotomy for meningioma - doing well - continue to mobilize - home tomorrow AM Consultation Date/Type/Reason Admit Date/Time Apr 25, 2019 at 02:42 Initial Consult Date 04/25/19 Type of Consult Neurosurgery Requesting Provider: GLORIA BLAND Date/Time of Note DATE: 04/29/19 TIME: 14:44 24 HR Interval Summary Free Text/Dictation POD2 R temporal craniotomy for meningioma Doing well, headache improved Exam/Review of Systems Exam Vitals Vital Signs Date Temp Pulse Resp B/P (MAP) Pulse Ox O2 O2 Flow FiO2 Time Delivery Rate 04/29/19 98.0 68 18 133/69 99 Room Air 14:06 (90) 04/27/19 2.0 22:00 Intake and Output 04/28/19 04/28/19 04/29/19 1515:00 23:00 07:00 IntakeIntake Total 100 ml 1300 ml OutputOutput Total 2050 ml BalanceBalance -2050 ml 100 ml 1300 ml Exam neuro-intact incision c/d/i Results Result Diagram: 04/28/1952904/28/19 0530 Medications Medication Current Medications Lorazepam (Ativan) 1 mg Q5M PRN IV SEIZURES; Start 04/24/19 at 21:30 IV Flush (NS 3 ml) 3 ml PER PROTOCOL IV ; Start 04/24/19 at 21:30 Ondansetron HCl (Zofran Inj) 4 mg Q6H PRN IV NAUSEA/VOMITING; Start 04/24/19 at 21:30 Acetaminophen (Tylenol Tab) 650 mg Q6H PRN PO .PAIN 1-3 OR TEMP Last administered on 04/28/19at 17:45; Admin Dose 650 MG; Start 04/24/19 at 21:30 Docusate Sodium (Colace) 100 mg Q12H PRN PO .CONSTIPATION Last administered on 04/26/19at 20:48; Admin Dose 100 MG; Start 04/24/19 at 21:30 Bisacodyl (Dulcolax) 5 mg DAILY PRN PO .CONSTIPATION; Start 04/24/19 at 21:30 Levetiracetam (Keppra) 500 mg BID PO Last administered on 04/29/19at 09:37; Admin Dose 500 MG; Start 04/25/19 at 09:00 Lidocaine (Xylocaine (Viscous)) 15 ml QID PRN PO tongue pain Last administered on 04/25/19 17:51; Admin Dose 15 ML; Start 04/25/19 at 15:30 Losartan Potassium (Cozaar) 50 mg DAILY PO Last administered on 04/29/19 09:37; Admin Dose 50 MG; Start 04/26/19 at 13:00 Hydrochlorothiazide (Hydrochlorothiazide) 12.5 mg DAILY PO Last administered on 04/29/19 09:38; Admin Dose 12.5 MG; Start 04/26/19 at 13:00 Topiramate (Topamax) 50 mg BID PO Last administered on 04/29/19 09:38; Admin Dose 50 MG; Start 04/27/19 at 21:00 Albuterol (Proventil 0.083% (Neb)) 2.5 mg ICU RECOVERY PRN HHN .WHEEZING; Start 04/27/19 at 11:30 Sodium Chloride 1,000 ml @ 75 mls/hr [id number] IV Last administered on 04/29/19 06:19; Admin Dose 75 MLS/HR; Start 04/27/19 at 12:00 Hydromorphone HCl (Dilaudid) 0.5 mg Q6H PRN IV SEVERE PAIN LEVEL 7-10 Last administered on 04/29/19 12:49; Admin Dose 0.5 MG; Start 04/27/19 at 17:00 Phenol (Cepastat Lozenge) 1 lozenge Q1H PRN MT throat pain or irritation Last administered on 04/29/19 12:49; Admin Dose 1 LOZENGE; Start 04/29/19 at 09:30 KASIA BLAIR MD Apr 29, 2019 14:45
[2019-04-29 19:15] VITALS: BP 143/79; PULSE 57; RESP 18
[2019-04-29 19:40] VITALS: BP 128/67; PULSE 62
[2019-04-29] MEDS: ACETAMINOPHEN 325 MG TAB PO PRN (20:25)
[2019-04-29] MEDS: DOCUSATE SODIUM 100 MG CAP PO PRN (20:26)
[2019-04-30 02:00] VITALS: BP 125/63; PULSE 64; RESP 18
[2019-04-30 02:30] VITALS: BP 130/69; PULSE 59; RESP 18
[2019-04-30 08:03] VITALS: BP 108/59; PULSE 58; RESP 18
[2019-04-30] MEDS: HYDROCHLOROTHIAZIDE 12.5 MG CAP PO SCH (08:45)
[2019-04-30] MEDS: TOPIRAMATE 25 MG TAB PO SCH (08:45)
[2019-04-30] MEDS: LEVETIRACETAM 500 MG TAB PO SCH (08:45)
[2019-04-30] MEDS: LOSARTAN 50 MG TAB PO SCH (08:46)
--- NOTE | 2019-04-30 09:45 | PDOCDIS ---
Discharge Instructions DIAGNOSIS Discharge Diagnosis New onset seizure. Posterior right temporal 2.5 cm meningioma s/p surgical resection. CONDITION [id number] Patient Condition: [id number] Good HOME CARE INSTRUCTIONS: [id number] Diet Instructions: [id number] Regular ACTIVITY: [id number] Activity Restrictions: [id number] No Restrictions FOLLOW UP/APPOINTMENTS Follow-up Plan 1. Continue your usual medications as prescribed. 2. For pain, take acetaminophen (tylenol) as needed. 3. Avoid NSAIDs like ibuprofen, naproxen (Advil, Motrin). These can increase the risk of bleeding. 4. Do not submerge your incision under water. Avoid baths and pools. Showers are okay, pat dry afterwards. Okay to wash with soap and water. 5. Make an appointment with Dr. Zarate in clinic ([phone]) in 2 weeks. 6. If your pain gets much worse, return to the emergency room. MARGARET HAM MD Apr 30, 2019 09:45
[2019-04-30] MEDS ORDERED: POTASSIUM CHLORIDE 20 MEQ POWDER FOR ORAL SOLN PO ONE (10:00)
[2019-04-30] MEDS ORDERED: DEXAMETHASONE 4 MG TAB PO SCH (13:00)
--- NOTE | 2019-04-30 16:04 | DS ---
Date/Time of Note Date/Time of Note DATE: 04/30/19 TIME: 15:55 Discharge Summary Admission/Discharge Info Admit Date/Time Apr 25, 2019 at 02:42 Discharge Date/Time Apr 30, 2019 at 13:25 Discharge Diagnosis New onset seizure. Posterior right temporal 2.5 cm meningioma s/p surgical resection. Patient Condition: Fair Consults Dr. Zarate, neurosurgery Dr. Mackey, neurology Procedures 04/27/19: Right temporal craniotomy for resection of meningioma (Leong grade 1) Hx of Present Illness Chief complaint: Witnessed seizure, altered mental status Patient is a 43-year-old woman with a history of hypertension who presents with altered mental status status post new onset witnessed seizure. As per the family at the bedside the patient was sitting and having dinner with the family when all of a sudden she appeared to be in a stare and then started having shaking activity and foaming at the mouth. Family members grabbed the patient and gently put her to the ground and on her side. The seizure did continue for a few minutes and then it stopped on its own without any intervention. The patient did appear confused after the seizure stopped. When she arrived in the emergency department she still was somewhat confused. Her blood sugar was checked in the emergency department and it was 115. Please note the history and physical exam is limited secondary to the patient's altered mental status upon arrival. The patient was brought in by ambulance. The patient's sugar was 115 but she was not cooperative with paramedics. She was brought in from her home. She does have a family history of seizures in her sister. Allergies: NKDA medications: See [facility] Hospital Course She had a CT head done which showed a possible parenchymal lesion. MRI brain confirmed a 2.5 x 1.7 x 2.5 cm enhancing extra-axial dural-based mass along the posterior right temporal region, most consistent with a meningioma. This was considered likely to be a focus of seizure. She was taken to surgery by Dr. Zarate and had the mass resected. She was given brief postoperative antibiotics and started on steroids. The original plan was to only do a brief 3 day course of dexamethasone. However on the day of discharge she had an episode of confusion where, while signing the discharge paperwork, she was drawing vertical lines over and over again instead of writing her last name. There was still mild edema on CT so we decided to discharge on a longer 2 week steroid taper. For jeremías dietrich, she was started on Keppra and will be transitioned to Topiramate. She had no further seizures in the hospital. Home Meds Active Scripts Dexamethasone* (Dexamethasone*) 1 Mg Tablet, 1 MG PO Q8, #78 TAB Prov:MARGARET HAM MD 04/30/19 Levetiracetam* (Keppra*) 500 Mg Tablet, 500 MG PO BID, #60 TAB Prov:MARGARET HAM MD 04/30/19 Topiramate* (Topiramate*) 50 Mg Tablet, 50 MG PO BID, #90 TAB 1 Refill Prov:MARGARET HAM MD 04/30/19 Reported Medications Omeprazole* (Omeprazole*) 20 Mg Capsule.dr, 20 MG PO DAILY, #30 CAP 04/27/19 Irbesartan-Hydrochlorothiazide (Irbesartan-Hydrochlorothiazide) 150-12.5 Mg Tab, TAB PO DAILY, TAB TAKE 1 OR 2 TAB DAILY 04/24/19 Follow-up Plan 1. Continue your usual medications as prescribed. 2. For pain, take acetaminophen (tylenol) as needed. 3. Avoid NSAIDs like ibuprofen, naproxen (Advil, Motrin). These can increase the risk of bleeding. 4. Do not submerge your incision under water. Avoid baths and pools. Showers are okay, pat dry afterwards. Okay to wash with soap and water. 5. Make an appointment with Dr. Zarate in clinic ([phone]) in 2 weeks. 6. If your pain gets much worse, return to the emergency room. Primary Care Provider Not On Staff Doctor Time spent on discharge: > 30 minutes Pending Labs Laboratory Tests Test 04/30/19 04:45 White Blood Count 14.1 10^3/ul (4.8-10.8) Red Blood Count 4.74 10^6/ul (4.20-5.40) Hemoglobin 13.4 g/dl (12.0-16.0) Hematocrit 41.1 % (37.0-47.0) Mean Corpuscular Volume 86.7 fl (82.0-101.0) Mean Corpuscular Hemoglobin 28.3 pg (29.0-33.0) Mean Corpuscular Hemoglobin Concent 32.6 g/dl (32.0-37.0) Red Cell Distribution Width 14.6 % (11.5-14.5) Platelet Count 337 10^3/UL (140-415) Mean Platelet Volume 10.0 fl (7.4-10.4) Immature Granulocytes % 1.000 % (0.001-0.429) Neutrophils % 58.6 % (39.0-77.0) Lymphocytes % 31.1 % (15.0-51.0) Monocytes % 8.6 % (0.0-11.0) Eosinophils % 0.5 % (0.0-7.0) Basophils % 0.2 % (0.0-2.0) Nucleated Red Blood Cells % 0.0 /100WBC (0.0-0.0) Immature Granulocytes # 0.140 10^3/ul (0.0-0.031) Neutrophils # 8.3 10^3/ul (1.6-7.5) Lymphocytes # 4.4 10^3/ul (0.8-2.9) Monocytes # 1.2 10^3/ul (0.3-0.9) Eosinophils # 0.1 10^3/ul (0.0-0.5) Basophils # 0.0 10^3/ul (0.0-0.1) Nucleated Red Blood Cells # 0.0 10^3/ul (0.0-0.0) Sodium Level 138 mmol/L (135-144) Potassium Level 3.1 mmol/L (3.5-5.1) Chloride Level 110 mmol/L (97-110) Carbon Dioxide Level 20 mmol/L (21-31) Anion Gap 8 (5-13) Blood Urea Nitrogen 17 mg/dl (7-20) Creatinine 0.81 mg/dl (0.44-1.00) Est Glomerular Filtrat Rate mL/min > 60 mL/min (>60) Glucose Level 110 mg/dl (70-220) Calcium Level 8.7 mg/dl (8.4-10.2) Phosphorus Level 2.7 mg/dl (2.5-4.9) Magnesium Level 2.1 mg/dl (1.7-2.5) MARGARET HAM MD Apr 30, 2019 16:04
[2019-05-01] MEDS ORDERED: ASA/ACETAMINOPHEN/CAFF TAB PO ONE (01:00)
== END 2019-04-30 13:25 | disposition home or self-care (01) | DRG 25 ==
LOC: E/R 19:28 → UNDOADMIN 21:14 → TEL 21:14 → UNDOADMIN 04-25 02:42 → TEL 04-25 03:21 → ICU 04-27 10:00 → MS1 04-28 16:36 → UNDODISIN 04-30 13:25
PROVIDERS: ADMIT Family Medicine; ATTEND Internal Medicine
PROC: 8E09XBZ Computer Assisted Procedure of Head and Neck Region (ICD-10-PCS; 2019-04-27)
PROC: 00B10ZZ Excision of Cerebral Meninges, Open Approach (ICD-10-PCS; principal; 2019-04-27 07:30)
DX: D32.0 Benign neoplasm of cerebral meninges (principal); G93.6 Cerebral edema; E66.01 Morbid (severe) obesity due to excess calories; G40.909 Epilepsy, unspecified, not intractable, without status epilepticus; R41.0 Disorientation, unspecified; I10 Essential (primary) hypertension; Z68.39 Body mass index [BMI] 39.0-39.9, adult
CPT/HCPCS: 36415; 70450; 70552; 70553; 71045; 80048; 80053; 80307; 81001; 81025; 82962; 83036; 83735; 84100; 84443; 85025; 87081; 88307; 93005; 95819; 96374; 96375; 97116; 97161; 97164; 97530; C1713; G0378; J0360; J0690; J1100; J1170; J1953; J2060; J2270; J2405; J3010; J3480; J7030